=== PATIENT | male | born 1990 ===

== ENCOUNTER 2022-12-13 08:16 | Outpatient (REF) | payer OTHER, SELFPAY | END 2022-12-13 08:17 | disposition home or self-care (01) | LOC: HO.XRAY 08:16 | PROVIDERS: PCP Internal Medicine; Visit Provider Internal Medicine | DX: Z13.89 Encounter for screening for other disorder (principal) ==

== ENCOUNTER 2023-05-01 20:25 | Emergency (ER) | payer OTHER, SELFPAY ==
--- NOTE | ~2023-05-01 | CT_ITS ---
EXAMINATION: CT ABDOMEN AND PELVIS WITHOUT CONTRAST CLINICAL INFORMATION: Abdominal pain with nausea vomiting and question of renal calculi COMPARISON: None available. TECHNIQUE: Multidetector volumetric imaging was performed from the superior aspect of the liver through the pubic symphysis. Sagittal and coronal reformatted images were obtained on the technologist's workstation. This CT examination was performed using dose optimization techniques as appropriate, variously including the following: *Automated exposure control *Adjustment of mA and/or kV according to patient size (this includes techniques or standardized protocols for targeted exams where dose is matched to indication/reason for exam; i.e. extremities or head) *Use of iterative reconstruction technique DLP: 834 mGy-cm FINDINGS: LUNG BASES: The visualized lung bases are unremarkable. Right basilar atelectasis is present. LIVER, GALLBLADDER, AND BILIARY TREE: The liver is normal in size, shape, and attenuation. No focal hepatic lesion or biliary ductal dilatation is present. The gallbladder is unremarkable with no evidence of radiopaque gallstones, gallbladder wall thickening, or obvious pericholecystic inflammatory changes. PANCREAS: Unremarkable. SPLEEN: Unremarkable. ADRENAL GLANDS: Unremarkable. KIDNEYS AND URETERS: The kidneys are normal in size, shape, and attenuation. No hydronephrosis, hydroureter, or calculi seen. No perinephric stranding. BLADDER: Unremarkable. GASTROINTESTINAL TRACT: The small and large bowel are unremarkable aside from some scattered colonic diverticula without diverticulitis.. The appendix is unremarkable. ABDOMINAL WALL: No significant hernia is appreciated. LYMPH NODES: No retroperitoneal lymphadenopathy. VASCULAR: Unremarkable. PELVIC VISCERA: Symmetrically thickened bladder wall is present. Correlate with cystitis. Prostate and seminal vesicles appear normal. OSSEOUS STRUCTURES: Unremarkable. CT/CT abdomen pelvis wo IV con IMPRESSION: A cause for the patient's abdominal pain, nausea and vomiting has not been found. No renal calculi are seen. Bladder wall is symmetrically thickened which can be seen due to underfilling or possibly bladder outflow obstruction or cystitis. Colonic diverticula are present without diverticulitis. Fleischner guidelines were followed.
--- NOTE | ~2023-05-01 | XR_ITS ---
EXAMINATION: XR CHEST, 2 VIEWS CLINICAL INFORMATION: Pain COMPARISON: None. TECHNIQUE: PA and lateral views of the chest were obtained. FINDINGS: Lungs are clear. No consolidation, pneumothorax, or pleural effusion. Cardiac and mediastinal contours are normal. Pulmonary vasculature is unremarkable. Trachea is midline. Osseous structures are unremarkable. XR/XR chest 2V IMPRESSION: Normal chest radiographs.
--- NOTE | 2023-05-01 20:50 | ED_ITS ---
HPI - General Adult General Chief complaint: General Medical Stated complaint: nausea, fever?, hypertension cough Time Seen by Provider: 05/01/23 21:47 Source: patient Mode of arrival: ambulatory Limitations: no limitations History of Present Illness HPI narrative: Patient is a 32-year-old male presents to the emergency department for multiple complaints. States that he awoke this morning 0530 feeling unwell, feeling nauseous, subjective fever. This afternoon he developed vomiting, reports 8-9 times initially with food, then transition to clear emesis. Reports soft stools but no overt diarrhea. Mild abdominal discomfort or vomiting, otherwise endorsing abdominal pain. Denies fevers, chills, chest pain, loss, shortness of breath, difficulty breathing, constipation, melena, hematochezia, dysuria, hemat uria, urinary frequency, flank pain. States that he had a family gathering last night, did not eat any atypical foods, no others in the home are sick. Denies any known sick contacts Related Data Previous Rx's Medication Instructions Recorded ondansetron 4 mg disintegrating 4 mg PO Q8H PRN nausea and 05/02/23 tablet vomiting #10 tabs Allergies Allergy/AdvReac Type Severity Reaction Status Date / Time seafood Allergy Severe Anaphylaxis Uncoded 03/15/23 16:34 Review of Systems Review of Systems: Yes all other systems are reviewed and are negative PMFSH Past Medical History Attestation statement: The following information was validated with the patient. Source: old records reviewed Medical History Obesity (BMI 30-39.9) Smoker Surgical History S/P excision of lipoma Social History Social History Housing: Apartment Patient Tobacco Use Status: Current everyday Tobacco user Cigarettes Per Day: 4 Smoked in Last 30 Days: No e-Cigarette/Vaping Use: Never Used Substance Use Type: Marijuana Advance Directives: No Advance Directives Information Provided: Yes service: No Current occupational status: employed Cognitive needs: No Hearing needs: No Vision needs: No Physical Exam ED Vital Signs: Vital Signs - 24 hr 05/01/23 20:55 05/01/23 22:00 05/02/23 00:41 Temperature 98.8 F 97.8 F 97.9 F Pulse Rate 64 63 64 Respiratory Rate 16 16 14 Blood Pressure 154/102 H 156/90 H 125/64 Pulse Oximetry 98 97 95 Oxygen Delivery Method Room Air Room Air Room Air BMI result Body Mass Index 34.9 Appearance: Alert.?Oriented to person, place and time. No acute distress.?Normal affect. Eyes: Pupils equal, round and reactive to light.? ENT: Pharynx normal.?? Neck: Normal inspection.? Neck supple.?? CVS: Heart sounds normal. Normal heart rate and rhythm.? Pulses normal.?? Respiratory: No respiratory distress.? Lung sounds clear to auscultation bilaterally?? Abdomen: Soft and non-tender. Normoactive bowel sounds. No pulsatile mass.?? Skin: Skin warm and dry.? Normal skin color.? ?? Extremities: No lower extremity edema.? Neuro: Moves all extremities spontaneously. Sensation intact bilaterally. Ambulates with normal steady gait. Course Course Course Narrative: A 32-year-old male presents for evaluation of multiple complaints including nausea vomiting, cough, high blood pressure. Reports subjective fevers and chills but did not take his temperature. Plan for labs including chest x-ray, UA Reevaluation(s) Reevaluation #1: Chest x-ray without evidence of acute infection. COVID-19 and influenza testing are negative. CBC is overall unremarkable, no leukocytosis. CMP is overall unremarkable, lipase within normal limits, at this time low suspicion for acute hepatic or biliary abnormality, no acute abdomen, unlikely appendicit is/diverticulitis/obstruction/perforation. Urinalysis reveals microscopic hematuria, at this time patient reporting diffuse abdominal pain, very mild CVA tenderness on the right, will obtain CT imaging for evaluation of renal calculi Time: 23:00 Reevaluation #2: CT of the abdomen and pelvis is without acute abnormality. Rated p.o. trial. Symptoms at this time most likely consistent with gastroenteritis. Discussed hydration, bland diet, Zofran as needed. Outpatient follow-up with PCP. Discussed worrisome signs and symptoms that would warrant re-evaluation in the emergency department. All questions answered. Stable for discharge. Time: 00:40 Medications Administered Discontinued Medications Generic Name Dose Route Start Last Admin Trade Name Freq PRN Reason Stop Dose Admin Sodium Chloride 1,000 mls @ 999 mls/hr 05/01/23 22:15 05/02/23 00:55 Ns IV 05/01/23 23:15 Infused .Q1H1M RANCHO Infusion Ondansetron HCl 4 mg 05/01/23 22:05 05/01/23 22:23 Ondansetron Hcl 4 Mg/2 Ml Vial IVPUSH 05/01/23 22:06 4 mg ONCE ONE Administration Medical Decision Making Medical Decision Making [facility] Narrative: Patient is a 32-year-old male with no reported past medical history, presenting to the emergency department for evaluation of nausea/vomiting with mild abdominal discomfort. Initially mildly hypertensive, upon repeat blood pressure was 147/87, afebrile without tachycardia. Does not meet SIRS criteria. Not consistent with systemic toxicity at this time. Abdominal examination is overall benign, no rebound tenderness, no rigidity, no guarding, negative Morejon sign. Will obtain CBC to evaluate for leukocytosis/ anemia, CMP and lipase to evaluate for abnormal electrolytes /abnormal renal function/ abnormal hepatic/biliary function, and Urinalysis. Patient to receive 1L normal saline IV fluid, Zofran IV, and re-evaluate Differential Diagnosis Differential Diagnoses: The differential diagnosis associated with the presentation includes (Gastroenteritis, cholecystitis, cholelithiasis, pancreatitis, appendicitis, diverticulitis, urinary tract infection, viral infection) Admission/Observation Consideration of admission/observation: Escalation of care including admission/observation considered I considered admission, however patient is able to tolerate oral intake at this time, no acute abdomen. Stable for discharge home Lab Data [facility] Lab Attestation statement: I reviewed the patient's lab results. 05/01/23 20:57 05/01/23 20:57 Labs: Lab Results 05/01/23 05/01/23 05/01/23 Range/Units 20:57 20:57 20:57 WBC 9.3 (4.8-10.8) X10*3/uL RBC 5.46 (4.60-5.80) X10*6/uL Hgb 15.7 (14.0-18.0) g/dl Hct 46.3 (42.0-52.0) % MCV 84.8 (80.0-98.0) fL MCH 28.8 (27.0-33.0) pg MCHC 33.9 (31.0-36.0) g/dl RDW 11.3 (11.0-16.0) % Plt Count 228 (160-400) X10*3/uL MPV 10.1 (9.4-12.4) fL Immature Gran % (Auto) 0.3 (0.0-0.4) % Neut % (Auto) 71.6 (45-73) % Lymph % (Auto) 17.3 L (20-40) % [place] % (Auto) 6.7 (2-11) % Eos % (Auto) 3.7 (0-4) % Baso % (Auto) 0.4 (0-2) % Lymph # (Auto) 1.6 (1.2-4.9) X10*3/uL [place] # (Auto) 0.6 (0.1-1.2) X10*3/uL Eos # (Auto) 0.3 (0.0-0.4) X10*3/uL Baso # (Auto) 0.0 (0.0-0.2) X10*3/uL Abs Immat Gran (auto) 0.03 (0.00-0.03) X10*3/uL Absolute Neuts (auto) 6.7 (2.0-8.3) x10*3/uL Absolute Nucleated RBC 0.000 (0.0-0.012) X10*3/uL Nucleated RBC % (auto) 0.0 (0.0-0.2) /100WBC Sodium 138 (135-145) mmol/L Potassium 4.1 (3.3-5.1) mmol/L Chloride 105 (96-108) mmol/L Carbon Dioxide 22 (22-29) mmol/L Anion Gap 15 (12-20) BUN 14 (9-16) mg/dL Creatinine 0.99 (0.5-1.4) mg/dL Estim Creat Clear Calc 139.7 Estimated GFR > 60 Random Glucose 112 (60-115) mg/dL Calcium 9.7 (8.4-10.2) mg/dL Total Bilirubin 1.1 H (0.0-1.0) mg/dL AST 24 (5-37) U/L ALT 19 (0-40) U/L Alkaline Phosphatase 72 (39-117) U/L Total Protein 7.6 (6.5-8.0) g/dL Albumin 4.3 (3.5-5.0) g/dL Lipase 15 (8-78) U/L Urine Color Urine Appearance Urine pH (5.0-9.0) Ur Specific [place] (1.005-1.025) Urine Protein (Neg-Trace) mg/dL Urine Glucose (UA) (Negative) mg/dL Urine Ketones (Negative) mg/dL Urine Blood (Negative) Urine Nitrite (Negative) Ur Leukocyte Esterase (Negative) Urine RBC (0-2) /HPF Urine WBC (0-5) /HPF Ur Squamous Epith Cells (0-2) /HPF Urine Bacteria (None Seen) Hyaline Casts (0-2) /LPF Influenza Type A (PCR) NEGATIVE (Negative) Influenza Type B (PCR) NEGATIVE (Negative) RSV RNA Qual (PCR) NEGATIVE (Negative) SARS-CoV-2 RNA (RT-PCR) NEGATIVE (Negative) 05/01/23 Range/Units 22:20 WBC (4.8-10.8) X10*3/uL RBC (4.60-5.80) X10*6/uL Hgb (14.0-18.0) g/dl Hct (42.0-52.0) % MCV (80.0-98.0) fL MCH (27.0-33.0) pg MCHC (31.0-36.0) g/dl RDW (11.0-16.0) % Plt Count (160-400) X10*3/uL MPV (9.4-12.4) fL Immature Gran % (Auto) (0.0-0.4) % Neut % (Auto) (45-73) % Lymph % (Auto) (20-40) % [place] % (Auto) (2-11) % Eos % (Auto) (0-4) % Baso % (Auto) (0-2) % Lymph # (Auto) (1.2-4.9) X10*3/uL [place] # (Auto) (0.1-1.2) X10*3/uL Eos # (Auto) (0.0-0.4) X10*3/uL Baso # (Auto) (0.0-0.2) X10*3/uL Abs Immat Gran (auto) (0.00-0.03) X10*3/uL Absolute Neuts (auto) (2.0-8.3) x10*3/uL Absolute Nucleated RBC (0.0-0.012) X10*3/uL Nucleated RBC % (auto) (0.0-0.2) /100WBC Sodium (135-145) mmol/L Potassium (3.3-5.1) mmol/L Chloride (96-108) mmol/L Carbon Dioxide (22-29) mmol/L Anion Gap (12-20) BUN (9-16) mg/dL Creatinine (0.5-1.4) mg/dL Estim Creat Clear Calc Estimated GFR Random Glucose (60-115) mg/dL Calcium (8.4-10.2) mg/dL Total Bilirubin (0.0-1.0) mg/dL AST (5-37) U/L ALT (0-40) U/L Alkaline Phosphatase (39-117) U/L Total Protein (6.5-8.0) g/dL Albumin (3.5-5.0) g/dL Lipase (8-78) U/L Urine Color Yellow Urine Appearance Clear Urine pH 7.0 (5.0-9.0) Ur Specific [place] 1.020 (1.005-1.025) Urine Protein Negative (Neg-Trace) mg/dL Urine Glucose (UA) Negative (Negative) mg/dL Urine Ketones Negative (Negative) mg/dL Urine Blood Negative (Negative) Urine Nitrite Negative (Negative) Ur Leukocyte Esterase Negative (Negative) Urine RBC 3-5 H (0-2) /HPF Urine WBC 0-5 (0-5) /HPF Ur Squamous Epith Cells 0-2 (0-2) /HPF Urine Bacteria None Seen (None Seen) Hyaline Casts 0-2 (0-2) /LPF Influenza Type A (PCR) (Negative) Influenza Type B (PCR) (Negative) RSV RNA Qual (PCR) (Negative) SARS-CoV-2 RNA (RT-PCR) (Negative) Independent Interpretation I performed an independent interpretation of an: Plain X-Ray (I have personally interpreted chest x-ray and with radiologist impression) and CT Scan Radiology Impression Discussion of test interpretation with radiology: I have reviewed the radiologist's reading. Radiologist Impression: XR/XR chest 2V IMPRESSION: Normal chest radiographs.? CT/CT abdomen pelvis wo IV con IMPRESSION: A cause for the patient's abdominal pain, nausea and vomiting has not been found. No renal calculi are seen. Bladder wall is symmetrically thickened which can be seen due to underfilling or possibly bladder outflow obstruction or cystitis. Colonic diverticula are present without diverticulitis. Prescription Management I considered prescription management with: Other (Antiemetic) Discharge Plan Discharge Clinical Impression: Abdominal pain Patient Disposition: Home, Self-Care Instructions: Abdominal Pain (ED) Additional Instructions: Your blood test today were normal. There is no evidence of a urinary tract infection. The CT scan of your abdomen was also normal. At this time your symptoms are most likely due to a viral infection; gastroenteritis. Please be sure to stay well hydrated, drinking plenty of fluids, follow a bland diet; including crackers, bananas, rice, soup, toast, and boiled vegetables. This may progress to plain baked or boiled chicken or turkey. Avoid dairy products or foods high in fat or grease. Take Zofran as needed for nausea/vomiting. Follow-up with your primary care provider in 2-3 days for persistent symptoms. You can return back to emergency department any new or worsening symptoms or concerns. Prescriptions: New ondansetron 4 mg tablet,disintegrating 4 mg PO Q8H PRN (Reason: nausea and vomiting) Qty: 10 0RF Referrals: Francisco Javier Murguia MD [Primary Care Provider] - Stand Alone Forms: Work/School Release Interventions: ED Discharge Assessment Last Done: 05/02/23 01:47 Discharge Date/Time: 05/02/23 01:48
[2023-05-01 20:55] VITALS: BP 154/102; PULSE 64; RESP 16; TEMP 37.1; O2SAT 98; BMI 34.9
[2023-05-01 21:03] LABS: MANUAL DIFF FLAG NO
[2023-05-01 21:09] LABS: Basophils Percent Auto 0.4 % (0-2); Eosinophils Absolute Auto 0.3 X10*3/uL (0.0-0.4); Eosinophils Percent Auto 3.7 % (0-4); Hematocrit 46.3 % (42.0-52.0); Hemoglobin 15.7 g/dl (14.0-18.0); Imm Gran Abs Auto 0.03 X10*3/uL (0.00-0.03); Imm Gran Pct Auto 0.3 % (0.0-0.4); Lymphocytes Absolute Auto 1.6 X10*3/uL (1.2-4.9); Lymphocytes Percent Auto 17.3 % (20-40); Mean Corpuscular HGB Conc 33.9 g/dl (31.0-36.0); Mean Corpuscular Hemoglobin 28.8 pg (27.0-33.0); Mean Corpuscular Volume 84.8 fL (80.0-98.0); Mean Platelet Volume 10.1 fL (9.4-12.4); Monocytes Absolute Auto 0.6 X10*3/uL (0.1-1.2); Monocytes Percent Auto 6.7 % (2-11); Neutrophils Absolute Auto 6.7 x10*3/uL (2.0-8.3); Neutrophils Percent Auto 71.6 % (45-73); Platelet Count 228 X10*3/uL (160-400); Red Blood Count 5.46 X10*6/uL (4.60-5.80); Red Cell Distribution Width 11.3 % (11.0-16.0); White Blood Count 9.3 X10*3/uL (4.8-10.8)
[2023-05-01 21:42] LABS: Alanine Aminotransferase 19 U/L (0-40); Albumin Level 4.3 g/dL (3.5-5.0); Alkaline Phosphatase 72 U/L (39-117); Anion Gap 15 (12-20); Aspartate Amino Transferase 24 U/L (5-37); Bilirubin Total 1.1 mg/dL (0.0-1.0); Blood Urea Nitrogen 14 mg/dL (9-16); Calcium 9.7 mg/dL (8.4-10.2); Carbon Dioxide 22 mmol/L (22-29); Chloride 105 mmol/L (96-108); Creatinine Clr Calc Pharmacy 139.7; Estimated Glomerular Filt Rate > 60; Glucose Random 112 mg/dL (60-115); Lipase 15 U/L (8-78); Potassium 4.1 mmol/L (3.3-5.1); Sodium 138 mmol/L (135-145); Total Protein 7.6 g/dL (6.5-8.0)
[2023-05-01 21:50] LABS: Influenza A PCR NEGATIVE (Negative); Influenza B PCR NEGATIVE (Negative); Resp Syncy Virus RNA Qual PCR NEGATIVE (Negative); SARS COV2 PCR INHOUSE NEGATIVE (Negative)
[2023-05-01 22:00] VITALS: BP 156/90; PULSE 63; RESP 16; TEMP 36.6; O2SAT 97
[2023-05-01] MEDS: ondansetron HCL 4 MG/2 ML VIAL IVPUSH (22:23)
[2023-05-01] MEDS: 0.9 % Sodium Chloride 1,000 ML 999 ML IV (22:24)
[2023-05-01 22:26] LABS: Appearance Urine Clear; Color Urine Yellow; Glucose Urine UA Negative (Negative); Leukocyte Esterase Urine Negative (Negative); Nitrite Urine Negative (Negative); Urine Blood Negative (Negative); Urine Ketones Negative (Negative); Urine Protein Negative (Neg-Trace)
[2023-05-01 22:31] LABS: Bacteria Urine None Seen (None Seen); Hyaline Casts Urine 0-2 /LPF (0-2); Squamous Epithelial Cell Urine 0-2 /HPF (0-2); WBC Urine 0-5 /HPF (0-5)
[2023-05-02 00:41] VITALS: BP 125/64; PULSE 64; RESP 14; TEMP 36.6; O2SAT 95
== END 2023-05-02 01:48 | disposition home or self-care (01) ==
PROVIDERS: Physician Assistant; Emergency Provider Emergency Medicine; PCP Internal Medicine
DX: R10.9 Unspecified abdominal pain (principal); R11.0 Nausea; R05.9 Cough, unspecified; I10 Essential (primary) hypertension; R50.9 Fever, unspecified; R10.2 Pelvic and perineal pain; F17.200 Nicotine dependence, unspecified, uncomplicated; Z20.822 Contact with and (suspected) exposure to COVID-19; Z20.828 Contact with and (suspected) exposure to other viral communicable diseases; Z71.6 Tobacco abuse counseling; Z79.899 Other long term (current) drug therapy
CPT/HCPCS: 0241U; 71046; 74176; 80053; 81001; 83690; 85025; 96361; 96374; 99284; J2405

== ENCOUNTER 2023-05-26 09:00 | Outpatient (REF) | payer OTHER, SELFPAY ==
--- NOTE | ~2023-05-26 | FL_ITS ---
EXAMINATION: XR BARIUM ENEMA CLINICAL INFORMATION: Hemorrhage of the anus and rectum. COMPARISON: None available. TECHNIQUE: KUB prior to the barium enema reveals nonspecific bowel gas pattern. No organomegaly. No radiopaque calculi. No gross bony abnormality. FINDINGS: Following retrograde administration of thick barium and air there is normal retrograde flow of thick barium and air from the rectum, sigmoid colon, descending, transverse and ascending colon into the terminal ileum. No obstructive or constricting lesions seen. Especially no filling defects or mass seen in the rectum or the colon. Visualized ileocecal junction and the terminal ileum are normal. The appendix is normal caliber. On postevacuation images there is mild retention of barium throughout the colon with no intraluminal large filling defect or narrowing. FLUOROSCOPY TIME: 2 minutes DOSE AREA PRODUCT: 219 uGy-m2 (microgray-meter squared) FL/FL barium enema IMPRESSION: Unremarkable double contrast barium enema.
== END 2023-05-26 09:01 | disposition home or self-care (01) ==
LOC: HO.XRAY 09:00
PROVIDERS: PCP Internal Medicine; Visit Provider Internal Medicine
DX: K62.5 Hemorrhage of anus and rectum (principal)
CPT/HCPCS: 74270

== ENCOUNTER → 2023-05-26 09:02 | Outpatient (BNV) | payer OTHER, SELFPAY | PROVIDERS: PCP Internal Medicine; Visit Provider Radiology Diagnostic Radiology | DX: K56.600 Partial intestinal obstruction, unspecified as to cause (principal) | CPT/HCPCS: 74280 ==

== ENCOUNTER 2023-09-26 17:07 | Outpatient (AMB) | payer OTHER, SELFPAY ==
[2023-09-26 17:08] VITALS: BP 122/80; PULSE 73; O2SAT 98; BMI 33.9
--- NOTE | 2023-09-26 17:08 | A.OFFPC_ITS ---
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: No Accompanied by: Self / Same As Patient Allergies seafood Allergy (Severe, Uncoded 09/26/23 18:45) Anaphylaxis Medication List - Last Reconciled 09/26/23 by Francisco Javier Murguia MD bisacodyl (Dulcolax (bisacodyl)) 20 mg (4 x 5 mg) PO BEDTIME 1 day magnesium citrate 150 mL PO DAILY ondansetron 4 mg PO Q8H PRN polyethylene glycol 3350 (Miralax) 17 grams PO DAILY sennosides (senna) 8.6 mg PO BEDTIME PRN 30 days Tobacco use date assessed: 09/26/23 Dental Screening Dental Screen Date: 09/26/23 Did you have a dental visit in the last 12 months?: No Did you have a dental problem in the last 6 months where you did not have access to dental care?: No Was dental information given to patient?: Patient has dentist HPI pe HPI Details Patient comes in today for his annual physical examination States that he currently feels okay He denies any headaches or dizziness Denies any chest pains, no shortness of breath No nausea /vomiting, no abdominal pain No change in bowel habits noted Still has occasional blood in the stool but states that this is not occurring as often as it used to; states that the last time he noticed some blood in his stool was a couple of weeks ago He denies any acute urinary symptoms Would like to know how his barium enema done a few months ago came out [facility] Medical History Obesity (BMI 30-39.9) Smoker Surgical History S/P excision of lipoma Social History Housing: Apartment Patient Tobacco Use Status: Current everyday Tobacco user Cigarettes Per Day: 4 e-Cigarette/Vaping Use: Never Used Substance Use Type: Marijuana service: No Current occupational status: employed Cognitive needs: No Hearing needs: No Vision needs: No Questionnaire PHQ-9 Over the last 2 weeks, how often have you been bothered by any of the following problems? 1. Little interest or pleasure in doing things: not at all 2. Feeling down, depressed, or hopeless: not at all 3. Trouble falling or staying asleep, or sleeping too much: not at all 4. Feeling tired or having little energy: not at all 5. Poor appetite or overeating: not at all 6. Feeling bad about yourself - or that you are a failure or have let yourself or your family down: not at all 7. Trouble concentrating on things, such as reading the newspaper or watching television: not at all 8. Moving or speaking so slowly that other people could have noticed. Or the opposite - being so fidgety or restless that you have been moving around a lot more than usual: not at all 9. Thoughts that you would be better off or of hurting yourself in some way: not at all Total score: 0 Depression Screening Interpretation: Negative Depression Screening Done: Yes 92469 - PHQ-9 Billing: Yes Source: Developed by Drs. Phani Ferrara, Shivani Vieyra, Basil Rolon and colleagues, with an educational mishel from [employer]. Thrive Questionnaire Date Thrive assessed: 09/26/23 I am a: Patient What is your living situation today?: I have a steady place to live Within the past 12 months, did the food you bought not last and you didn't have the money to get more?: Never true Within the past 12 months, did you worry whether your food would run out before you got money to buy more?: Never true Do you have trouble paying for medicines?: No Do you have trouble getting transportation to medical appointments?: No Do you have trouble paying your heating and electricity bill?: No Do you have trouble taking care of your child, family member or friend?: No Do you have trouble with day-to-day activities such as bathing, preparing meals, shopping, managing finances, etc.?: No Are you currently unemployed and looking for a job?: No Are you interested in more education?: No Please select the resources that you would like help with: None Currently or been in a relationship where the following occur: no concerns reported AUDIT C Alcohol Use Questionnaire (AUDIT-C) 1. How often do you have a drink containing alcohol?: Never Total Score: 0 Score Reviewed/Action Taken: Yes MISSAEL-7 AMB Questionnaire MISSAEL-7 Date MISSAEL - 7 assessed: 09/26/23 Feeling nervous, anxious, or on edge: 0 = Not at all Not being able to stop or control worryin = Not at all Worrying too much about different things: 0 = Not at all Trouble relaxin = Not at all Being so restless that it is hard to sit still: 0 = Not at all Becoming easily annoyed or irritable: 0 = Not at all Feeling afraid as if something awful might happen: 0 = Not at all Total MISSAEL-7 score (0-4 normal; 5-9 mild; 10-14 moderate; 15-21 severe): 0 Source: Developed by Drs. Phani Ferrara, Shivani Vieyra, Basil Rolon and colleagues, with an educational mishel from [employer]. Review of Systems Const Denies chills, Denies fatigue, Denies fever(s), Denies headache(s), Denies malaise and Denies weakness Eyes Denies blurry vision, Denies change in vision, Denies irritation and Denies itchy eyes ENT Denies dysphagia, Denies dizziness, Denies otalgia, Denies headache(s), Denies nasal congestion, Denies neck pain, Denies odynophagia and Denies sore throat Card Denies chest pain, Denies rapid heart rate, Denies irregular heart rhythm, Denies palpitations and Denies dyspnea Resp Denies chest congestion, Denies cough, Denies dyspnea and Denies wheezing GI Denies abdominal pain, Denies bloating, Reports hematochezia (occasionally), Denies constipation, Denies dysphagia, Denies heartburn, Denies diarrhea, Denies nausea, Denies odynophagia and Denies vomiting Denies hematuria, Denies difficulty urinating, Denies dysuria, Denies urinary frequency and Denies urinary urgency Musc Denies back pain, Denies arthralgias, Denies joint swelling, Denies muscle weakness and Denies neck pain Skin/Breast Denies change in pigmentation, Denies lesions, Denies rash and Denies unusual bruising Neuro Denies dizziness, Denies headache(s), Denies paresthesias and Denies weakness Endo Denies fatigue and Denies palpitations Aller/Immun Denies itchy eyes and Denies wheezing Physical exam (Primary Care) Vital Signs: Last Vital Signs Pulse 73 09/26/23 17:08 BP 122/80 09/26/23 17:08 Pulse Ox 98 09/26/23 17:08 Oxygen Delivery Method Room Air 09/26/23 17:08 BMI result Body Mass Index 33.9 Tobacco/Smoking Status: Tobacco use Status Tobacco use date assessed 09/26/23 09/26/23 17:16 Patient Tobacco Use Status Current everyday Tobacco 09/26/23 17:16 e-Cigarette/Vaping Use Never Used 09/26/23 17:16 PHQ-9: PHQ-9 Score PHQ-9: Total score 0 09/26/23 22:20 Depression Screening Interpretation: Negative Thrive Assessment: Date of Thrive Assessment Date Thrive assessed 09/26/23 09/26/23 17:16 Currently or been in a relationship where the following occur: no concerns reported Const General: no acute distress, alert and awake Orientation/consciousness: patient oriented x3 HENMT Head: Yes normocephalic and Yes atraumatic Ears: external ears normal, TM's normal bilaterally and EAC's normal General nose exam: No nasal discharge present Face and sinus: Yes normal facial exam and Yes sinuses nontender Teeth and gingiva: dentition normal Throat: Yes posterior oropharynx normal and Yes tonsils normal (no TP congestion) Eyes Eyelids: Yes eyelids normal Conjunctivae: conjunctivae normal Pupils: Equal, round and reactive pupils present EOM: EOMs intact bilaterally Neck Neck: Yes no lymphadenopathy and Yes supple Thyroid: Thyroid normal Resp Auscultation: clear to auscultation bilaterally, no rales and no wheezes Cardio Rate: regular rate Rhythm: regular rhythm Heart sounds: no murmurs GI Palpation (GI): Soft to palpation, nontender and No hepatosplenomegaly present Auscultation: normal bowel sounds General: Yes no CVA tenderness Back/Spine/Pelvis Back: no CVA tenderness Thoracic/Lumbar Spine: thoracic and lumbar spine normal to inspection Skin Lesions: no lesions Rashes: no rashes Neuro General: patient oriented x3, moves all extremities, no focal motor deficits and CN's II-XI intact bilaterally Cranial nerves: Yes Equal, round and reactive pupils present Cognition (Neuro): normal cognition Gait exam (Neuro): Normal gait present Extrem General: Yes no clubbing, cyanosis or edema Results Reviewed Results Reviewed: Laboratory Tests 05/01/23 05/01/23 20:57 22:20 WBC 9.3 Hgb 15.7 Hct 46.3 Plt Count 228 Sodium 138 Potassium 4.1 Creatinine 0.99 Estimated GFR > 60 Random Glucose 112 Calcium 9.7 AST 24 ALT 19 Ur Specific [place] 1.020 Urine Protein Negative Urine Glucose (UA) Negative Urine Blood Negative Assessment and Plan Assessment & Plan (1) Annual physical exam: Code(s): Z00.00 - Encounter for general adult medical examination without abnormal findings Plan: Results of his labs done a few months ago reviewed and discussed with patient - is advised/reassured that his labs done back then were mostly within normal/acceptable range and that no other blood tests are needed or indicated at this time (2) Rectal bleeding: Code(s): K62.5 - Hemorrhage of anus and rectum Plan: He is also reassured that his barium enema done back in May 2023 came out normal Abdominal and pelvic CT done the month before (April 2023) also came out negative for any acute pathology As he continues to have on and off blood in his stool (discussed that internal hemorrhoids may be a possible source), will refer him to GI for further evaluation and management Have advised patient that he can take some OTC stool softener as needed to keep him from straining a lot during bowel movements, which can trigger rectal bleeding if he has hemorrhoids Rx for Senna 8.6 mg tablets sent to his pharmacy (3) Smoker: Code(s): F17.200 - Nicotine dependence, unspecified, uncomplicated Plan: Counseled again on smoking cessation (4) Obesity (BMI 30-39.9): Code(s): E66.9 - Obesity, unspecified Plan: Reinforced diet/exercise as tolerated/lose weight Plan Follow up in 6 months Orders: Referrals Gastroenterology Referral K62.5 - Hemorrhage of anus and rectum Medications: New sennosides (senna) 8.6 mg PO BEDTIME 30 days PRN 30 caps 2RF constipation Coding Level of Care Code Est Pt Prev Care 18-39y(09833) Diagnoses Annual physical exam Z00.00 Rectal bleeding K62.5 Smoker F17.200 Obesity (BMI 30-39.9) E66.9
== END 2023-09-26 17:35 | disposition home or self-care (01) ==
LOC: HO.HMGH 17:07
PROVIDERS: PCP Internal Medicine; Visit Provider Internal Medicine
DX: Z00.00 Encounter for general adult medical examination without abnormal findings (principal); K62.5 Hemorrhage of anus and rectum; E66.9 Obesity, unspecified; Z68.33 Body mass index [BMI] 33.0-33.9, adult; F17.210 Nicotine dependence, cigarettes, uncomplicated
CPT/HCPCS: 99395

== ENCOUNTER 2024-04-02 17:05 | Outpatient (AMB) | payer BC, MEDICAID, SELFPAY ==
[2024-04-02 17:12] VITALS: BP 140/86; PULSE 92; O2SAT 99; BMI 29.8
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
== END 2024-04-02 17:51 | disposition home or self-care (01) ==
PROVIDERS: PCP Internal Medicine; Visit Provider Internal Medicine
DX: I10 Essential (primary) hypertension (principal); S06.9X9S Unspecified intracranial injury with loss of consciousness of unspecified duration, sequela; F31.9 Bipolar disorder, unspecified; S72.002S Fracture of unspecified part of neck of left femur, sequela; G47.00 Insomnia, unspecified; F41.9 Anxiety disorder, unspecified
CPT/HCPCS: 99214

== ENCOUNTER 2024-05-22 16:13 | Outpatient (AMB) | payer OTHER, SELFPAY ==
[2024-05-22 16:15] VITALS: BP 130/90; PULSE 80; O2SAT 98; BMI 33.6
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
== END 2024-05-22 16:55 | disposition home or self-care (01) ==
LOC: HO.HMGH 16:13
PROVIDERS: PCP Internal Medicine; Visit Provider Internal Medicine
DX: M79.661 Pain in right lower leg (principal); F31.9 Bipolar disorder, unspecified; M79.89 Other specified soft tissue disorders; M79.662 Pain in left lower leg; I10 Essential (primary) hypertension; G47.00 Insomnia, unspecified; F41.9 Anxiety disorder, unspecified
CPT/HCPCS: 99213

== ENCOUNTER 2024-05-23 13:16 | Outpatient (REF) | payer OTHER, SELFPAY ==
--- NOTE | ~2024-05-23 | US_ITS ---
EXAMINATION: US VENOUS ULTRASOUND WITH DOPPLER LOWER EXTREMITY, BILATERAL CLINICAL INFORMATION: Bilateral leg edema and pain COMPARISON: None available. TECHNIQUE: Ultrasound of the deep veins is performed from the hip to the calf with compression sonography and color and pulse Doppler assessment. Spectral analysis with color-flow imaging is performed. FINDINGS: RIGHT: There is normal venous compression and respiratory variation and augmented flow. The visualized common femoral vein, superficial femoral vein, profunda femoral vein, popliteal vein, and the trifurcation region shows no evidence of deep venous thrombosis. There is no significant popliteal fossa cyst. LEFT: There is normal venous compression and respiratory variation and augmented flow. The visualized common femoral vein, superficial femoral vein, profunda femoral vein, popliteal vein, and the trifurcation region shows no evidence of deep venous thrombosis. There is no significant popliteal fossa cyst. US/US venous duplex LE BI IMPRESSION: No DVT demonstrated in either lower extremity.
== END 2024-05-23 13:17 | disposition home or self-care (01) ==
LOC: HO.HMGCX 13:16
PROVIDERS: PCP Internal Medicine; Visit Provider Internal Medicine
DX: M79.661 Pain in right lower leg (principal); M79.662 Pain in left lower leg; R60.0 Localized edema
CPT/HCPCS: 93970

== ENCOUNTER 2024-07-29 15:47 | Outpatient (AMB) | payer OTHER, SELFPAY ==
[2024-07-29 15:37] VITALS: BP 130/78; PULSE 98; O2SAT 98; BMI 37.8
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
== END 2024-07-29 16:23 | disposition home or self-care (01) ==
PROVIDERS: PCP Internal Medicine; Visit Provider Internal Medicine
DX: I10 Essential (primary) hypertension (principal); S06.9X9S Unspecified intracranial injury with loss of consciousness of unspecified duration, sequela; R06.02 Shortness of breath; R14.0 Abdominal distension (gaseous); R60.0 Localized edema; G47.00 Insomnia, unspecified; F41.9 Anxiety disorder, unspecified; F31.9 Bipolar disorder, unspecified; E66.9 Obesity, unspecified

== ENCOUNTER → 2024-07-29 15:47 | Outpatient (BNVA) | payer OTHER, SELFPAY | PROVIDERS: PCP Internal Medicine; Visit Provider Internal Medicine | DX: I10 Essential (primary) hypertension (principal); R06.02 Shortness of breath; R14.0 Abdominal distension (gaseous); R60.0 Localized edema; G47.00 Insomnia, unspecified; F41.9 Anxiety disorder, unspecified; F31.9 Bipolar disorder, unspecified; E66.9 Obesity, unspecified; Z79.899 Other long term (current) drug therapy; S06.9X9S Unspecified intracranial injury with loss of consciousness of unspecified duration, sequela | CPT/HCPCS: 96127; 99212 ==

== ENCOUNTER 2024-09-18 10:33 | Outpatient (AMB) | payer OTHER, SELFPAY ==
[2024-09-18 10:35] VITALS: BP 124/72; PULSE 82; O2SAT 99; BMI 38.4
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
== END 2024-09-18 11:14 | disposition home or self-care (01) ==
LOC: HO.HPSW 10:33
PROVIDERS: PCP Internal Medicine; Referring Provider Internal Medicine; Visit Provider Nurse Practitioner Family
DX: J45.909 Unspecified asthma, uncomplicated (principal); Z91.09 Other allergy status, other than to drugs and biological substances
CPT/HCPCS: 99204

== ENCOUNTER → 2024-09-18 10:33 | Outpatient (BNVA) | payer OTHER, SELFPAY | PROVIDERS: PCP Internal Medicine; Referring Provider Internal Medicine; Visit Provider Nurse Practitioner Family | DX: J45.909 Unspecified asthma, uncomplicated (principal); R06.00 Dyspnea, unspecified; Z57.2 Occupational exposure to dust; Z91.09 Other allergy status, other than to drugs and biological substances; Z87.891 Personal history of nicotine dependence | CPT/HCPCS: 99202 ==

== ENCOUNTER 2024-09-18 11:19 | Outpatient (REF) | payer OTHER, SELFPAY ==
[2024-09-18 14:19] LABS: Appearance Urine Clear; Color Urine Yellow; Glucose Urine UA Negative (Negative); Leukocyte Esterase Urine Negative (Negative); Nitrite Urine Negative (Negative); Specific Gravity - Urine 1.025 (1.005-1.025); Urine Blood Negative (Negative); Urine Ketones Negative (Negative); Urine Protein Negative (Neg-Trace)
[2024-09-18 15:04] LABS: Alanine Aminotransferase 28 U/L (0-40); Albumin Level 4.2 g/dL (3.5-5.0); Alkaline Phosphatase 79 U/L (39-117); Anion Gap 12 (12-20); Aspartate Amino Transferase 28 U/L (5-37); Bilirubin Total 0.8 mg/dL (0.0-1.0); Blood Urea Nitrogen 15 mg/dL (9-16); Calcium 8.9 mg/dL (8.4-10.2); Carbon Dioxide 25 mmol/L (22-29); Chloride 107 mmol/L (96-108); Estimated Glomerular Filt Rate > 60; Glucose Random 104 mg/dL (60-115); Potassium 3.9 mmol/L (3.3-5.1); Sodium 140 mmol/L (135-145); Total Protein 7.7 g/dL (6.5-8.0)
[2024-09-18 15:28] LABS: TSH reflex Free T4 1.08 uIU/mL (0.32-4.0); Vitamin D 25-OH Total 27.5 ng/mL (>30)
[2024-09-19 18:57] LABS: Immunoglobulin E 104 kU/L (<OR=114)
[2024-09-20 10:32] LABS: E001 - IgE Cat Dander 0.83 (H)
[2024-09-20 10:33] LABS: Class Cat Dander 2; Class Derm. pterony 3; Class Dermatophagoides farinae 3; Class Dog Dander 3; D001 IgE D pteronyssinus 10.10 (H); D002 - IgE D farinae 10.60 (H); E005 - IgE Dog Dander 7.48 (H)
[2024-09-20 10:34] LABS: Class Maple Box Elder 2; Class Mouse Urine Protein 0; E072-IgE Mouse Urine <0.10; I006-IgE Cockroach, German <0.10; Immunoglobulin E 110; T001 IgE Maple/Box Elder 1.19 (H)
[2024-09-20 10:35] LABS: Class Alternaria alternata 0; Class Aspergillus fumigatus 0; Class Cladosporium herbarum 0; Class Cockroach 0; Class Common Ragweed 0; Class Cottonwood 0; Class Mountain Cedar 0; Class Mugwort 0; Class Oak 0; Class Sycamore 0; Class Timothy Grass 0; Class Walnut Tree 0; Class White Ash 0; Class White Mulberry 0; G006 - IgE Timothy Grass <0.10; M002 - IgE Cladosporium herbar <0.10; M003 - IgE Aspergillus fumigat <0.10; M006 - IgE Alternaria alternat <0.10; T006 - IgE Cedar, Mountain <0.10; T007 - IgE Oak, White <0.10; T010 - IgE Walnut <0.10; T011 - IgE Maple Leaf Sycamore <0.10; T014 - IgE Cottonwood <0.10; T015 - IgE Ash, White <0.10; T070 - IgE White Mulberry <0.10; W001 - IgE Ragweed, Short <0.10; W006 - IgE Mugwort <0.10
[2024-09-20 10:36] LABS: Class Bermuda Grass 0; Class Birch 0; Class Elm 0; Class Penicillium crysogenum 0; Class Rough Pigweed 0; Class Sheep Sorrel 0; G002 IgE Bermuda Grass <0.10; M001 IgE Penicillium chrysogen <0.10; T003 IgE Common Silver Birch <0.10; T008 IgE Elm, American <0.10; W014 IgE Pigweed, Common <0.10; W018 IgE Sheep Sorrel <0.10
== END 2024-09-18 11:20 | disposition home or self-care (01) ==
LOC: HO.WFDLDS 11:19
PROVIDERS: Referring Provider Nurse Practitioner Family; Visit Provider Internal Medicine
DX: R14.0 Abdominal distension (gaseous) (principal); R63.5 Abnormal weight gain; E78.00 Pure hypercholesterolemia, unspecified; E55.9 Vitamin D deficiency, unspecified; R30.0 Dysuria; Z91.09 Other allergy status, other than to drugs and biological substances
CPT/HCPCS: 36415; 80053; 81003; 82306; 82785; 84443; 86003

== ENCOUNTER 2024-11-07 10:14 | Outpatient (REF) | payer OTHER, SELFPAY ==
[2024-11-07 10:20] VITALS: PULSE 75; O2SAT 97
--- NOTE | 2024-11-07 11:08 | PFT_ITS ---
Flows: FEV1: 68 % of predicted at 2.79 L FVC: 85 % of predicted at 4.19 L FEV1/FVC: 67 % Bronchodilator response: Present Volumes: Total lung capacity: 83 % of predicted at 5.42 L Residual volume: 98 % of predicted at 1.38 L Slow vital capacity: 78 % of predicted at 4.04 L Expiratory reserve volume: 49 % of predicted at 0.74 L Diffusion capacity: Normal Impression: Moderate obstructive ventilatory defect with positive bronchodilator response. Decreased expiratory reserve volume suggests extrathoracic restriction likely secondary to abdominal obesity. MTDD
== END 2024-11-07 10:15 | disposition home or self-care (01) ==
LOC: HO.RESP 10:14
PROVIDERS: PCP Internal Medicine; Visit Provider Nurse Practitioner Family
DX: J45.909 Unspecified asthma, uncomplicated (principal)
CPT/HCPCS: 94010; 94640; 94727; 94729

== ENCOUNTER → 2024-11-07 11:08 | Outpatient (BNV) | payer OTHER, SELFPAY | PROVIDERS: PCP Internal Medicine; Visit Provider Internal Medicine Pulmonary Disease | DX: J45.909 Unspecified asthma, uncomplicated (principal) | CPT/HCPCS: 94060; 94727; 94729 ==

== ENCOUNTER 2024-11-19 11:04 | Outpatient (AMB) | payer OTHER, SELFPAY ==
[2024-11-19 11:11] VITALS: BP 122/70; PULSE 83; O2SAT 98; BMI 38.5
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
--- OUTSIDE RECORDS SUMMARY | 2024-11-19 12:29 | XMS_ITS | Continuity of Care Document ---
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, subsequent encounter(Final) - Cognitive communication deficit(Final) - Discharge Disposition: A-D/C Home Attending Physician: Mao Castellanos MD Admitting Physician: Mao Castellanos MD Referring Physician: Mao Castellanos MD Encounter Type: Disch Recurring OP Allergies, Adverse Reactions, Alerts Substance Criticality Severity Reaction Reaction Severity Status Seafood Active Immunizations Given and Recorded Vaccine Date Status Refusal Reason tetanus/diphtheria/pertussis, acel(Tdap) 05/06/20 Given Medications acetaminophen 325 mg oral tablet 975 mg, By Mouth, Every 6 hours, PRN, Refills 0, Maintenance, Pain , Mild, 03/15/24 1:31:00 PM EDT, Partial fill upon patient request if the prescription is for a schedule II opioid drug. Start Date: 03/15/24 Status: Ordered Repeat number: 1 albuterol-ipratropium 3 mg-0.5 mg/3 ml inhalation solution BAND Nebulizer, Every 4 hours, PRN Wheezing/Shortness of Breath, 0 Refills, Maintenance, 03/15/24 1:31:00 PM EDT, Inhalation Solution, Partial fill upon patient request if the prescription is for a schedule II opioid drug. Start Date: 03/15/24 Status: Ordered Repeat number: 1 amLODIPine 10 mg oral tablet 10 mg, By Mouth, Daily, # 30 tablet, Refills 0, Tot. Refills 0, Maintenance, 03/18/24 2:58:00 PM EDT,Route to Pharmacy Electronically, [facility] 3, Partial fill upon patient request if the prescription is for a schedule II opioid drug., 175, cm, 03/17/24 12:29:00 EDT, Height, 86.7, kg, 03/17/24 12:29:00 EDT, Dry Weight Start Date: 03/18/24 Stop Date: 04/17/24 Status: Ordered Quantity: 30.0 Unit: tablet Repeat number: 1 benztropine 1 mg oral tablet 1 mg, By Mouth, 2 times a day, Refills 0, Maintenance, 03/15/24 1:31:00 PM EDT, Partial fill upon patient request if the prescription is for a schedule II opioid drug. Start Date: 03/15/24 Status: Ordered Repeat number: 1 benztropine 1 mg oral tablet 1 mg, By Mouth, 2 times a day, # 60 tablet, Refills 0, Tot. Refills 0, Maintenance, 03/18/24 2:58:00 PM EDT, Route to Pharmacy Electronically, [facility] 3, Partial fill upon patient request if the prescription is for a schedule II opioid drug., 175, cm, 03/17/24 12:29:00 EDT, Height, 86.7, kg, 03/17/24 12:29:00 EDT, Dry Weight Start Date: 03/18/24 Stop Date: 04/17/24 Status: Ordered Quantity: 60.0 Unit: tablet Repeat number: 1 bisacodyl 10 mg rectal suppository 1 supp = 10 mg, Rectally, Daily, PRN Constipation, 0 Refills, Maintenance, 03/15/24 1:31:00 PM EDT, Suppository, Partial fill upon patient request if the prescription is for a schedule II opioid drug. Start Date: 03/15/24 Status: Ordered Repeat number: 1 Calamine Topical 1 applicator, Topically, 2 times a day, PRN Itch, 0 Refills, Maintenance, Lotion Start Date: 03/15/24 Status: Ordered Repeat number: 1 Clonidine = 0.2 mg, Topically, Every 7 days, 0 Refills, Maintenance, 03/15/24 1:31:00 PM EDT, Patch, Partial fill upon patient request if the prescription is for a schedule II opioid drug. Start Date: 03/15/24 Status: Ordered Repeat number: 1 commode commode, See Instructions, # 1 each, Refills 0, Tot. Refills 0, Maintenance, Use as needed, 03/16/24 4:06:00 PM EDT, Supply Start Date: 03/16/24 Status: Ordered Quantity: 1.0 Unit: each Repeat number: 1 Depakote 250 mg oral enteric coated tablet 1 tablet = 250 mg, By Mouth, 3 times a day, # 270 tablet, 0 Refills, Maintenance, 03/18/24 3:00:00 PMEDT, EC Tablet, [facility], Partial fill upon patient request if the prescription is for a schedule II opioid drug., 175, cm, 03/17/24 12:29:00 EDT, Height, 86.7, kg, 03/17/24 12:29:00 EDT, Dry Weight Start Date: 03/18/24 Status: Ordered Quantity: 270.0 Unit: tablet Repeat number: 1 divalproex sodium 250 mg oral enteric coated tablet = 750 mg, By Mouth, 3 times a day, 0 Refills, Maintenance, 03/15/24 1:31:00 PM EDT, Tablet, Partial fill upon patient request if the prescription is for a schedule II opioid drug. Start Date: 03/15/24 Status: Ordered Repeat number: 1 divalproex sodium 250 mg oral enteric coated tablet = 750 mg, By Mouth, 3 times a day, # 270 tablet, 0 Refills, Maintenance, 03/18/24 3:02:00 PM EDT, Tablet, [facility], Partial fill upon patient request if the prescription is for a schedule II opioid drug., 175, cm, 03/17/24 12:29:00 EDT, Height, 86.7, kg, 03/17/24 12:29:00 EDT, Dry Weight Start Date: 03/18/24 Stop Date: 04/17/24 Status: Ordered Quantity: 270.0 Unit: tablet Repeat number: 1 EpiPen 2-Ariel 0.3 mg injectable kit 0.5 mL, Intramuscular, Once, # 1 kit, 0 Refills, Soft Stop, 03/18/24 3:01:00 PM EDT, [facility] 3, Partial fill upon patient request if the prescription is for a schedule II opioid drug., 175, cm, 03/17/24 12:29:00 EDT, Height, 86.7, kg, 03/17/24 12:29:00 EDT, Dry Weight Start Date: 03/18/24 Status: Ordered Quantity: 1.0 Unit: kit Repeat number: 1 Multivit Therapeutic/Minerals Tablet 1 tablet, By Mouth, Daily, 0 Refills, Maintenance, 03/15/24 1:31:00 PM EDT, Tablet, Partial fill uponpatient request if the prescription is for a schedule II opioid drug. Start Date: 03/15/24 Status: Ordered Repeat number: 1 olanzapine 2.5 mg oral tablet 5 mg, 2, tablet, By Mouth, Daily at bedtime, # 60 tablet, Refills 0, Tot. Refills 0, Maintenance, 03/18/24 3:00:00 PM EDT, Route to Pharmacy Electronically, [facility] 3, Partial fill upon patient request if the prescription is for a schedule II opioid drug., 175, cm, 03/17/24 12:29:00 EDT, Height, 86.7, kg, 03/17/24 12:29:00 EDT, Dry Weight Start Date: 03/18/24 Stop Date: 04/17/24 Status: Ordered Quantity: 60.0 Unit: tablet Repeat number: 1 olanzapine 5 mg oral tablet 5 mg, By Mouth, Every 24 hours, Refills 0, Maintenance, 03/15/24 1:31:00 PM EDT, Partial fill upon patient request if the prescription is for a schedule II opioid drug. Start Date: 03/15/24 Status: Ordered Repeat number: 1 ondansetron 4 mg oral tablet, disintegrating = 4 mg, By Mouth, Every 6 hours, PRN Nausea & Vomiting, 0 Refills, Maintenance, 03/15/24 1:31:00 PM EDT, Tablet, Partial fill upon patient request if the prescription is for a schedule II opioid drug. Start Date: 03/15/24 Status: Ordered Repeat number: 1 Polyethylene Glycol Powder 1 pack/packet = 17 Gm, By Mouth, Daily, 0 Refills, Maintenance, 03/15/24 1:31:00 PM EDT, Powder, Partial fill upon patient request if the prescription is for a schedule II opioid drug. Start Date: 03/15/24 Status: Ordered Repeat number: 1 propranolol 20 mg oral tablet 60 mg, By Mouth, 3 times a day, Refills 0, Maintenance, 03/15/24 1:31:00 PM EDT, Partial fill upon patient request if the prescription is for a schedule II opioid drug. Start Date: 03/15/24 Status: Ordered Repeat number: 1 propranolol 20 mg oral tablet 60 mg, By Mouth, 3 times a day, # 270 tablet, Refills 0, Tot. Refills 0, Maintenance, 03/18/24 2:57:00 PM EDT, Route to Pharmacy Electronically, [facility], Partial fill upon patient request if the prescription is for a schedule II opioid drug., 175, cm, 03/17/24 12:29:00 EDT, Height, 86.7, kg, 03/17/24 12:29:00 EDT, Dry Weight Start Date: 03/18/24 Stop Date: 04/17/24 Status: Ordered Quantity: 270.0 Unit: tablet Repeat number: 1 shower chair shower chair, See Instructions, # 1 each, Refills 0, Tot. Refills 0, Maintenance, use as needed nash, 03/16/24 4:05:00 PM EDT, Supply Start Date: 03/16/24 Status: Ordered Quantity: 1.0 Unit: each Repeat number: 1 simethicone 80 mg oral tablet, chewable 80 mg, Chew, 3 times a day, PRN, Refills 0, Maintenance, Gas, 03/15/24 1:32:00 PM EDT, Partial fill upon patient request if the prescription is for a schedule II opioid drug. Start Date: 03/15/24 Status: Ordered Repeat number: 1 traZODone 100 mg oral tablet 200 mg, By Mouth, Daily at bedtime, # 60 tablet, Refills 0, Tot. Refills 0, Maintenance, 03/18/24 2:56:00 PM EDT, Route to Pharmacy Electronically, [facility], Partial fill upon patient request if the prescription is for a schedule II opioid drug., 175, cm, 03/17/24 12:29:00 EDT, Height, 86.7, kg, 03/17/24 12:29:00 EDT, Dry Weight Start Date: 03/18/24 Stop Date: 04/17/24 Status: Ordered Quantity: 60.0 Unit: tablet Repeat number: 1 traZODone 50 mg oral tablet 200 mg, By Mouth, Daily at bedtime, Refills 0, Maintenance, 03/15/24 1:31:00 PM EDT, Partial fill upon patient request if the prescription is for a schedule II opioid drug. Start Date: 03/15/24 Status: Ordered Repeat number: 1 walker walker, See Instructions, # 1 each, Refills 0, Tot. Refills 0, Maintenance, Height: 5'7 Weight: 87kg Dx: acetabular fracture and tibial plateau fracture, 03/16/24 4:04:00 PM EDT, Supply Start Date: 03/16/24 Status: Ordered Quantity: 1.0 Unit: each Repeat number: 1 Wheelchair Wheelchair, See Instructions, # 1 each, Refills 0, Tot. Refills 0, Maintenance, Height: 5'7 Weight: 87kg Dx: acetabular fracture and tibial plateau fracture, 03/16/24 4:02:00 PM EDT, Supply Start Date: 03/16/24 Status: Ordered Quantity: 1.0 Unit: each Repeat number: 1 ZyPREXA 2.5 mg oral tablet 2.5 mg, By Mouth, Daily in AM, Refills 0, Maintenance, 03/15/24 1:31:00 PM EDT, Partial fill upon patient request if the prescription is for a schedule II opioid drug. Start Date: 03/15/24 Status: Ordered Repeat number: 1 Problem List Condition Confirmation Course Effective Dates Status Health St atus Informant Bipolar affective disorder, currently depressed, mild Confirmed Active COVID-19 1 Confirmed 12/15/21 Active Mild major depression Confirmed Active Obese class II Confirmed Active 1Problem added by Discern Expert Patient Care team information Care Team Personnel Name: Jessica WHITE, Venkatesh Position: S RN Member Role: Primary Care Nurse Name: Francisco Javier Murguia MD Position: Reference Physician Member Role: PCP Address: [address] [place] [address] [place] [address]- Telecom: Name: Kathleen Mittal RN Position: [facility] RN Member Role: Primary Care Nurse Name: Beth Devries RN Position: [facility] RN Member Role: Primary Care Nurse Name: Corina Johnson RN Position: [facility] RN Member Role: Primary Care Nurse Name: Noemi Hill RN Position: [facility] RN Member Role: Primary Care Nurse Name: Ayleen Dubois RN Position: [facility] RN Member Role: Primary Care Nurse Name: Gladys Palmer RN Position: [facility] RN Member Role: Primary Care Nurse Name: Hilario Chaney RN Position: [facility] RN Member Role: Primary Care Nurse Name: Benny Muhammad LPN Position: [facility] RN Member Role: Primary Care Nurse Name: Leydi Hunter RN Position: [facility] RN Member Role: Primary Care Nurse Name: Aleah Ballard RN Position: [facility] RN Member Role: Primary Care Nurse Name: Adelaida Porter RN Position: [facility] RN Member Role: Primary Care Nurse Name: Licha Capps RN Position: [facility] RN Member Role: Primary Care Nurse Name: Allyson Martin RN Position: [facility] RN Member Role: Primary Care Nurse Name: Clarisa Pavon RN Position: [facility] RN Supv Member Role: Primary Care Nurse Name: Dayo Cruz RN Position: [facility] RN Member Role: Primary Care Nurse Name: Obdulia Murray RN Position: [facility] RN Member Role: Primary Care Nurse Name: Debra Guerrero RN Position: [facility] RN Member Role: Primary Care Nurse Name: Shabbir Smith RN Position: [facility] RN Member Role: Primary Care Nurse Name: Benjamin Rosales RN Position: [facility] RN Supv Member Role: Primary Care Nurse Name: Renee Hernandez RN Position: [facility] RN Member Role: Primary Care Nurse Name: Vielka Burns RN Position: [facility] RN Member Role: Primary Care Nurse Name: Vicki Corona RN Position: [facility] RN Member Role: Primary Care Nurse Name: Alejo Stinson RN Position: [facility] RN Member Role: Primary Care Nurse Name: Mariya Kumar RN Position: S RN Member Role: Primary Care Nurse Name: Celi Hernandez RN Position: S RN Member Role: Primary Care Nurse Name: Janett Miller RN Position: S RN Member Role: Primary Care Nurse Name: Wilma Spivey RN Position: S RN Member Role: Primary Care Nurse Name: Chelsi Elise NP Position: [facility] Outreach Member Role: Lifetime Consulting Physician Address: [address] [place], [place] [address] Telecom: Name: Oneyda Chapman RN Position: [facility] RN Member Role: Primary Care Nurse Name: Iwona Mills RN Position: [facility] RN Member Role: Primary Care Nurse Name: Cinthya Salgado RN Position: [facility] RN Member Role: Primary Care Nurse Name: Jessica Guerrier RN Position: [facility] RN Member Role: Primary Care Nurse Name: Sandro Herrera RN Position: [facility] RN Member Role: Primary Care Nurse Name: Bren Eduardo RN Position: [facility] RN Member Role: Primary Care Nurse Care Team Related Persons Name: XOCHILT LIM Name: XOCHILT ROSE Name: XOCHILT GAFFNEY Name: SERENITY CAMPBELL Name: ARMOND MORGAN Name: HANNAH THURMAN Insurance Providers Guarantor name: NA Health Plan Information #: 1 Payer: [employer] Member Number: [id number] Policy Number: NA Group Number: [id number] Health Plan Information #: 2 Payer: [employer] Member Number: [id number] Policy Number: NA Group Number: NA
--- OUTSIDE RECORDS SUMMARY | 2024-11-19 12:29 | XMS_ITS | Continuity of Care Document ---
Author Organization [facility] ter Address [address] [place] [address]- Care Team Providers Care Stave Block Splitter Name Role Phone Francisco Javier Murguia MD [id number] - 11/14/[address] [address]- Encounter Diagnosis Asthma exacerbation(Final) - 11/14/24 Discharge Disposition: A-D/C Home Attending Physician: Yuliana Kennedy DO Admitting Physician: Yuliana Kennedy DO Referring Physician: Not on Staff, Referring MD Encounter Type: Disch ES Allergies, Adverse Reactions, Alerts Substance Criticality Severity [...] 03/18/24 2:58:00 PM EDT,Route to Pharmacy Electronically, [facility] 3, Partial fill upon patient request if [...] 2:58:00 PM EDT, Route to Pharmacy Electronically, [facility] 3, Partial fill upon patient request if [...] Refills, Maintenance, 03/18/24 3:00:00 PMEDT, EC Tablet, [facility], Partial fill upon patient [...] Refills, Maintenance, 03/18/24 3:02:00 PM EDT, Tablet, [facility], Partial fill upon patient [...] Refills, Soft Stop, 03/18/24 3:01:00 PM EDT, [facility] 3, Partial fill upon patient request if [...] 3:00:00 PM EDT, Route to Pharmacy Electronically, [facility] 3, Partial fill upon patient request if [...] Date: 03/15/24 Status: Ordered Repeat number: 1 predniSONE 50 mg oral tablet 1 tablet = 50 mg, By Mouth, Daily, for 4 days, # 4 tablet, 0 Refills, Acute 11/18/24 6:43:00 AM EST, 11/14/24 6:43:00 AM EST, Tablet, [id number], Partial fill upon patient request if the prescription is for a schedule II opioid drug., 170, cm, 11/13/24 23:38:00 EST, Height, 127.3, kg, 11/13/24 2 3:38:00 EST, Dry Weight Start Date: 11/14/24 Stop Date: 11/18/24 Status: Ordered Quantity: 4.0 Unit: tablet Repeat number: 1 propranolol 20 mg oral [...] 2:57:00 PM EDT, Route to Pharmacy Electronically, [facility], Partial fill upon patient request if [...] 2:56:00 PM EDT, Route to Pharmacy Electronically, [facility], Partial fill upon patient request if [...] 12/15/21 Active Mild major depression Confirmed Active Severe obesity Confirmed Active 1Problem added by Discern Expert Results Radiology Reports * Exam Date Time Procedure Performing Provider Status 11/14/24 5:57 AM Chest 2 Views Frontal and Lat Benja Kaufman; Lucia (Verified) Notes: (Chest 2 Views Frontal and Lat) Reason For Exam: Shortness of Breath, Fever;Other: RESULT: Chest 2 Views Frontal and Lat Chest 2 Views Frontal and Lat COMPARISON: 01/27/2024 INDICATION / CLINICAL QUESTION: Shortness of breath FINDINGS: LINES AND TUBES: None. LUNGS AND PLEURA: Clear lungs. Normal pulmonary vascularity. No pleural effusion. No pneumothorax. HEART, MEDIASTINUM AND DAYAN: Normal. BONES AND SOFT TISSUES: Healed right rib and distal clavicle fractures. IMPRESSION: No acute abnormality. WSN: [id number] Ordering Physician: Garrick Vera Dictated By: Chico Donis MD Dictated Date/Time: 11/14/24 7:25 am Reviewed By: Chico Donis MD Signed By: Chico Donis MD Signed Date/Time: 11/14/24 7:25 am Transcribed By: KE Transcribed Date/Time: 11/14/24 7:24 am Vital Signs Most recent to oldest [Reference Range]: 1 2 3 Height 170 cm (11/13/24 11:38 PM) 170 cm (11/13/24 11:06 PM) Weight 127.3 kg (11/13/24 11:38 PM) 127.3 kg (11/13/24 11:06 PM) Oxygen Saturation [94-100 %] 96 % (11/14/24 6:40 AM) 97 % (11/14/24 4:20 AM) 98 % (11/14/24 12:50 AM) Pulse Rate [55-90 bpm] 80 bpm (11/14/24 6:40 AM) 79 bpm (11/14/24 4:20 AM) 69 bpm (11/14/24 12:50 AM) Body Mass Index [18.5-24.99 kg/m2] 44.05 kg/m2 *>HHI* (11/13/24 11:06 PM) Blood Pressure [90-138/55-84 mm Hg] 132/70mm Hg (11/14/24 6:40 AM) 135/97mm Hg (11/14/24 4:20 AM) 144/76mm Hg *H* (11/14/24 12:50 AM) Respiratory Rate [16-30 br/min] 16 br/min (11/14/24 6:40 AM) 28 br/min (11/14/24 4:20 AM) 19 br/min (11/14/24 12:50 AM) Temperature [96.8-100.4 DegF] 97.7 DegF (11/14/24 4:20 AM) 98.1 DegF (11/14/24 12:50 AM) 97.4 DegF (11/13/24 11:06 PM) Mode of Delivery (Oxygen) Room air (11/14/24 6:40 AM) Room air (11/14/24 4:20 AM) Nasal cannula (11/14/24 12:50 AM) Blood pressure sites Arm, left (11/14/24 6:40 AM) Arm, left (11/14/24 4:20 AM) Arm, left (11/14/24 12:50 AM) Temperature Route Oral (11/14/24 4:20 AM) Oral (11/14/24 12:50 AM) Oral (11/13/24 11:06 PM) Dry Weight 127.3 kg (11/13/24 11:38 PM) 127.3 kg (11/13/24 11:06 PM) Weight Obtained Via Standing scale (11/13/24 11:06 PM) Dry Weight Obtained Via Standing scale (11/13/24 11:06 PM) Patient Care team information Care Team Personnel Name: Venkatesh Loepz RN Position: [facility] RN Member Role: Primary Care Nurse Name: Francisco Javier Murguia MD Position: Reference Physician Member Role: PCP Address: [address] [place], [place] [id number] Telecom: Name: Kathleen Mittal RN Position: [facility] RN Member Role: Primary Care Nurse Name: Beth Devries RN Position: [facility] RN Member Role: Primary Care Nurse Name: Corina Johnson RN Position: [facility] RN Member Role: Primary Care Nurse Name: Noemi Hill RN Position: [facility] RN Member Role: Primary Care Nurse Name: Ayleen Dubois RN Position: [facility] RN Member Role: Primary Care Nurse Name: Gladys Palmer RN Position: [facility] RN Member Role: Primary Care Nurse Name: Hilario Chaney RN Position: [facility] RN Member Role: Primary Care Nurse Name: Benny Muhammad LPN Position: [facility] RN Member Role: Primary Care Nurse Name: Leydi Hunter RN Position: [facility] RN Member Role: Primary Care Nurse Name: Aleah Ballard RN Position: [facility] RN Member Role: Primary Care Nurse Name: Adelaida Porter RN Position: [facility] RN Member Role: Primary Care Nurse Name: Licha Capps RN Position: [facility] RN Member Role: Primary Care Nurse Name: Allyson Martin RN Position: [facility] RN Member Role: Primary Care Nurse Name: Clarisa Pavon RN Position: [facility] RN Supv Member Role: Primary Care Nurse Name: Dayo Cruz RN Position: [facility] RN Member Role: Primary Care Nurse Name: Obdulia Murray RN Position: [facility] RN Member Role: Primary Care Nurse Name: Debra Guerrero RN Position: [facility] RN Member Role: Primary Care Nurse Name: Shabbir Smith RN Position: [facility] RN Member Role: Primary Care Nurse Name: Benjamin Rosales RN Position: [facility] RN Supv Member Role: Primary Care Nurse Name: Renee Hernandez RN Position: [facility] RN Member Role: Primary Care Nurse Name: Vielka Burns RN Position: [facility] RN Member Role: Primary Care Nurse Name: Vicki Corona RN Position: [facility] RN Member Role: Primary Care Nurse Name: Alejo Stinson RN Position: [facility] RN Member Role: Primary Care Nurse Name: Mariya Kumar RN Position: [facility] RN Member Role: Primary Care Nurse Name: Celi Hernandez RN Position: [facility] RN Member Role: Primary Care Nurse Name: Janett Miller RN Position: [facility] RN Member Role: Primary Care Nurse Name: Wilma Spivey RN Position: [facility] RN Member Role: Primary Care Nurse Name: Chelsi Elise NP Position: [facility] Outreach Member Role: Lifetime Consulting Physician Address: [address] [place], [place] [address] Telecom: Name: Oneyda Chapman RN Position: [facility] RN Member Role: Primary Care Nurse Name: [place] RN Position: [facility] RN Member Role: Primary Care Nurse Name: Cinthya Salgado RN Position: [facility] RN Member Role: Primary Care Nurse Name: Jessica Guerrier RN Position: [facility] RN Member Role: Primary Care Nurse Name: Sandro Herrera RN Position: [facility] RN Member Role: Primary Care Nurse Name: Bren Eduardo RN Position: [facility] RN Member Role: Primary Care Nurse Care Team Related Persons Name: XOCHILT LIM Name: XOCHILT ROSE Name: XOCHILT GAFFNEY Name: SERENITY CAMPBELL Name: ARMOND MORGAN Name: HANNAH THURMAN Insurance Providers Guarantor name: RUDY Health Plan Information #: 3 Payer: [employer] Member Number: [id number] Policy Number: NA Group Number: [id number] Health Plan Information #: 1 Payer: [employer] Member Number: [id number] Policy Number: NA Group Number: [id number] Health Plan Information #: 2 Payer: [employer] Member Number: [id number] Policy Number: NA Group Number: NA
== END 2024-11-19 11:45 | disposition home or self-care (01) ==
PROVIDERS: PCP Internal Medicine; Visit Provider Nurse Practitioner Family
DX: J45.909 Unspecified asthma, uncomplicated (principal); Z91.09 Other allergy status, other than to drugs and biological substances; R06.00 Dyspnea, unspecified; R40.0 Somnolence
CPT/HCPCS: 99214

== ENCOUNTER → 2024-11-19 11:04 | Outpatient (BNVA) | payer OTHER, SELFPAY | PROVIDERS: PCP Internal Medicine; Visit Provider Nurse Practitioner Family | DX: J45.909 Unspecified asthma, uncomplicated (principal); R06.00 Dyspnea, unspecified; R40.0 Somnolence; I10 Essential (primary) hypertension; Z87.891 Personal history of nicotine dependence; Z91.09 Other allergy status, other than to drugs and biological substances | CPT/HCPCS: 99212 ==

== ENCOUNTER 2024-12-02 14:45 | Outpatient (AMB) | payer OTHER, SELFPAY ==
[2024-12-02 14:47] VITALS: BP 124/78; PULSE 77; TEMP 36.3; O2SAT 98; BMI 38.1
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
== END 2024-12-02 15:53 | disposition home or self-care (01) ==
PROVIDERS: PCP Internal Medicine; Visit Provider Internal Medicine
DX: R10.13 Epigastric pain (principal); S06.9X9S Unspecified intracranial injury with loss of consciousness of unspecified duration, sequela; F31.9 Bipolar disorder, unspecified; I10 Essential (primary) hypertension; R60.0 Localized edema; G47.00 Insomnia, unspecified; F41.9 Anxiety disorder, unspecified; E66.9 Obesity, unspecified

== ENCOUNTER → 2024-12-02 14:45 | Outpatient (BNVA) | payer OTHER, SELFPAY | PROVIDERS: PCP Internal Medicine; Visit Provider Internal Medicine | DX: R10.13 Epigastric pain (principal); I10 Essential (primary) hypertension; S06.9X9S Unspecified intracranial injury with loss of consciousness of unspecified duration, sequela; R60.0 Localized edema; G47.00 Insomnia, unspecified; F41.9 Anxiety disorder, unspecified; F31.9 Bipolar disorder, unspecified; E66.9 Obesity, unspecified | CPT/HCPCS: 96127; 99212 ==

== ENCOUNTER 2025-02-14 10:10 | Outpatient (REF) | payer BC, SELFPAY ==
--- NOTE | ~2025-02-14 | US_ITS ---
EXAMINATION: US ABDOMEN HISTORY: R10.9 - Unspecified abdominal pain TECHNIQUE: Real-time grayscale ultrasound imaging of the abdomen was performed and images were reviewed. COMPARISON: Correlation is made with an unenhanced CT of the abdomen dated 05/01/2023. FINDINGS: Liver: The right lobe of the liver measures 17.0 cm in size. The left lobe of the liver measures 12.4 cm in size. The liver demonstrates increased echotexture, consistent with steatosis. No focal mass or intrahepatic biliary ductal dilatation is identified. There is normal hepatopedal flow in the portal vein. Gallbladder and biliary tree: The gallbladder is unremarkable, without evidence of calculi, wall thickening, or pericholecystic fluid. There is no sonographic Morejon sign. The common bile duct is normal in caliber measuring 3 mm. Kidneys: Right kidney measures 11.3 cm in length. The left kidney measures 11.0 cm in length. The kidneys are unremarkable, without evidence of masses, hydronephrosis, or calculi. Pancreas: The pancreatic head, neck, and body are unremarkable. The pancreatic tail is obscured by bowel gas. Spleen: The spleen is normal in size and contour, measuring 10.7 cm in length. Abdominal aorta and inferior vena cava: The visualized portions of the abdominal aorta and inferior vena cava are normal in caliber. There is no free fluid in the abdomen. US/US abdomen complete IMPRESSION: Hepatomegaly and hepatic steatosis. Electronically signed by: Phani Santo MD 02/14/2025 11:10 AM EDT
--- OUTSIDE RECORDS SUMMARY | 2025-02-14 11:33 | XMS_ITS | Clinical Summary ---
Author Organization [facility] Address [address] [place] [address] Phone Care Team Providers Care Center Receptionist Name Role Phone Phani Del Valle DO Primary Care Provider + Allergies Active Allergy Reactions Criticality Noted Date Comments Cat Dander 12/18/2024 Dog Dander 12/18/2024 Chlorpheniramine-Phenylpropan 2024 Shellfish Containing Products 2024 Medications benztropine (COGENTIN) 1 mg tablet Take 1 tablet (1 mg total) by mouth 2 (two) times a day. Active cetirizine (ZyrTEC) 10 mg tablet Take 1 tablet (10 mg total) by mouth 1 (one) time each day if needed for allergies. Active divalproex (DEPAKOTE) [address] tablet Take 3 tablets (750 mg total) by mouth 3 (three) times a day. Active Breo Ellipta 200-25 mcg/dose inhaler Inhale 1 puff by mouth 1 (one) time each day. Active OLANZapine (ZyPREXA) 2.5 mg tablet Take 1 tablet (2.5 mg total) by mouth at bedtime. at bedtime. Active Ventolin HFA 90 mcg/actuation inhaler Inhale 2 puffs by mouth every 6 (six) hours if needed for shortness of breath or wheezing. 6.7 g Active Active Problems Problem Noted Date Diagnosed Date Influenza A 12/19/2024 TBI (traumatic brain injury) 12/19/2024 Moderate asthma without complication 12/19/2024 Obesity (BMI 35.0-39.9 without comorbidity) 04/2025 Severe obesity 12/19/2024 Resolved Problems Problem Noted Date Diagnosed Date Resolved Date Acute hypoxemic respiratory failure 12/19/2024 12/21/2024 Encounters Date Type Department Care Team Description 12/18/2024 8:38 PM EST - 12/21/2024 3:10 PM EST Hospital Encounter [facility] [address] [place] [id number] Shaun Mcintosh MD Japaridze, Anna, MD Flores, Carlos M, MD Kokosadze, MD Cristino Shortness of breath (Primary Dx); Influenza A; Moderate asthma with exacerbation, unspecified whether persistent; Acute hypoxic respiratory failure (CMS/HCC) Discharge Disposition: Home or Self Care from Last 3 Months Surgical History Surgery Date Site/Laterality Comments OTHER SURGICAL HISTORY PROCEDURE: DENIES PREVIOUS SURGERY Medical History Medical History Date Comments Depression DX:Depression Social History Tobacco Use Types Packs/Day Years Used Date Smoking Tobacco: Every Day Smokeless Tobacco: Never Alcohol Use Standard Drinks/Week Comments Yes 0 (1 standard drink = 0.6 oz pur e alcohol) Sex and Gender Information Value Date Recorded Sex Assigned at Male 12/18/2024 9:15 PM EST Legal Sex Male 6:52 PM EST Gender Identity Male 12/18/2024 9:15 PM EST Sexual Orientation Straight 12/18/2024 9: 15 PM EST Obstetrics History Last Filed Vital Signs Vital Sign Reading Time Taken Comments Blood Pressure 157/93 12/21/2024 12:37 PM EST Pulse 85 12/21/2024 12:37 PM EST Temperature 37.1 ??C (98.8 ??F) 12/21/2024 12:[address] Respiratory Rate 18 12/21/2024 12:37 PM EST Oxygen Saturation 92% 12/21/2024 12:37 PM EST Inhaled Oxygen Concentration - - Weight 123 kg (271 lb) 12/18/2024 7:17 PM EST Height 170.2 cm (5' 7 ) 12/18/2024 7:17 PM EST Body Mass Index 42.44 12/18/2024 7:17 PM EST Plan of Treatment Health Maintenance Due Date Last Done Comments Hepatitis B Vaccines (1 of 3 - 19+ 3-dose series) 2011 Pneumococcal Vaccine: Pediatrics (0 to 5 Years) and At-Risk Patients (6 to 64 Years) (1 of 2 - PCV) 2011 COVID-19 Vaccine (1 - 2023-2 5 season) 2024 Influenza Vaccine (#1) 2024 Cholesterol Screening (Lipid Panel) 12/19/2024 Depression Screening 12/19/2024 HIV Screening 12/19/2024 Hepatitis C Screening 12/19/2024 Social Influencers of Health Screening 12/19/2024 DTaP,Tdap,and Td Vaccines (3 - Td or Tdap) 03/02/2031 03/02/2021, 05/06/2020 HIB Vaccines Aged Out No longer eligi ble based on patient's age to complete this topic HPV Vaccines Aged Out No longer eligi ble based on patient's age to complete this topic Hepatitis A Vaccines Aged Out No long er eligible based on patient's age to complete this topic IPV Vaccines Aged Out No longer eligi ble based on patient's age to complete this topic MMR Vaccines Aged Out No longer eligi ble based on patient's age to complete this topic Meningococcal ACWY Vaccine Aged Out N o longer eligible based on patient's age to complete this topic Meningococcal B Vacine Aged Out No lo nger eligible based on patient's age to complete this topic RSV Immunization Patients Under 20 months Aged Out No longer eligible b ased on patient's age to complete this topic Varicella Vaccines Aged Out No longer eligible based on patient's age to complete this topic Procedures Procedure Name Priority Date/Time Associated Diagnosis Comments XR CHEST 1 VIEW Routine 12/20/2024 11:55 AM EST CBC WITH AUTO DIFFERENTIAL Routine 12/20/2024 6:13 AM EST MAGNESIUM Routine 12/20/2024 6:13 AM EST BASIC METABOLIC PANEL Routine 12/20/2024 6:13 AM EST CBC AND DIFFERENTIAL Routine 12/20/2024 6:13 AM EST OXYGEN THERAPY, ADULT STAT 12/19/2024 8:01 PM EST CBC WITH AUTO DIFFERENTIAL Routine 12/19/2024 8:09 AM EST MAGNESIUM Routine 12/19/2024 8:09 AM EST CBC AND DIFFERENTIAL Routine 12/19/2024 8:09 AM EST BASIC METABOLIC PANEL Routine 12/19/2024 8:09 AM EST OXYGEN THERAPY, ADULT STAT 12/19/2024 8:02 AM EST OXYGEN THERAPY, ADULT STAT 12/19/2024 3:50 AM EST OXYGEN THERAPY, ADULT STAT 12/19/2024 3:50 AM EST ARTERIAL BLOOD GAS STAT 12/19/2024 2: 45 AM EST TROPONIN I HIGH SENSITIVITY STAT 12/19/2024 1:24 AM EST LACTATE STAT 12/19/2024 1:[address] ANGIO CHEST WO AND/OR W CONTRAST STAT 12/19/2024 12:49 AM EST Shortness of breath CT ABDOMEN PELVIS W CONTRAST STAT 12/19/2024 12:49 AM EST VENOUS BLOOD GAS STAT 12/19/2024 12:1 8 AM EST LT GREEN - LI HEPARIN Routine 12/18/2024 11:52 PM EST EXTRA TUBES Routine 12/18/2024 11:52 PM EST CBC WITH AUTO DIFFERENTIAL STAT 12/18/2024 8:12 PM EST LIPASE STAT 12/18/2024 8:12 PM EST COMPREHENSIVE METABOLIC PANEL STAT 12/18/2024 8:12 PM EST CBC AND DIFFERENTIAL STAT 12/18/2024 8:12 PM EST [id number], RSV, FLU A AND B QUALITATIVE RT-PCR, INTERNAL LAB STAT 12/18/2024 8:12 PM EST ECG 12-LEAD STAT 12/18/2024 7:35 PM EST GA CRITICAL CARE EACH ADDITIONAL 30 MINUTES Routine 12/18/2024 7:09 PM EST GA CRITICAL CARE EACH ADDITIONAL 30 MINUTES Routine 12/18/2024 7:09 PM EST from Last 3 Months Results * XR Chest 1 View (12/20/2024 11:55 AM EST) Anatomical Region Laterality Modality Body Radiographic Annelise ging 12/20/2024 12:0 1 PM EST Impressions 12/20/2024 12:14 PM EST FINDINGS/IMPRESSION: No pneumonia or pulmonary edema. ??No pleural effusion or pneumothorax. ??Cardiac silhouette is normal in size. ??Multiple old posttraumatic deformities of the ribs and right clavicle noted. ??No acute displaced fracture. -------- FINAL REPORT -------- Dictated By: JARRELL PEÑALOZA Dictated Date: 12/20/2024 12:01 ET Assigned Physician: JARRELL PEÑALOZA Reviewed and Electronically Signed By: JARRELL PEÑALOZA Signed Date: 12/20/2024 12:14 ET Workstation ID: [id number] Transcribed By: Self Edit Transcribed Date: 12/20/2024 12:01 ET Narrative 12/20/2024 12:14 PM EST XR CHEST 1 VIEW INDICATION: ??Dyspnea TECHNIQUE: XR CHEST 1 VIEW COMPARISON: 12/16/2014 Procedure Note Jarrell Peñaloza MD - 12/20/2024 XR CHEST 1 VIEW INDICATION: Dyspnea TECHNIQUE: XR CHEST 1 VIEW COMPARISON: 12/16/2014 IMPRESSION: FINDINGS/IMPRESSION: No pneumonia or pulmonary edema. No pleural effusionor pneumothorax. Cardiac silhouette is normal in size. Multiple oldposttraumatic deformities of the ribs and right clavicle noted. No acutedisplaced fracture. -------- FINAL REPORT -------- Dictated By: JARRELL PEÑALOZA Dictated Date: 12/20/2024 12:01 ET Assigned Physician: JARRELL PEÑALOZA Reviewed and Electronically Signed By: JARRELL PEÑALOZA Signed Date: 12/20/2024 12:14 ET Workstation ID: [id number] Transcribed By: Self Edit Transcribed Date: 12/20/2024 12:01 ET Estate Sow[facility]a GILL IMG XR PROCEDURES Final Resu lt * (ABNORMAL) CBC auto differential (12/20/2024 6:13 AM EST) Only the most recent of3 resultswithin the time period is included. WBC 6.2 4.8 - 10.8 K/mcL LAB HEMETOLOGY METHOD 12/20/2024 7:22 AM [facility] RBC 4.90 4.50 - 5.50 M/mcL LAB HEMETOLOGY METHOD 12/20/2024 7:22 AM [facility] Hemoglobin 13.9 13.5 - 17.5 g/dL LAB HEMETOLOGY METHOD 12/20/2024 7:22 AM [facility] Hematocrit 42.5 42.0 - 54.0 % LAB HEMETOLOGY METHOD 12/20/2024 7:22 AM [facility] MCV 86.7 79.0 - 98.0 FL LAB HEMETOLOGY METHOD 12/20/2024 7:22 AM [facility] MCH 28.4 27.0 - 32.0 pcg LAB HEMETOLOGY METHOD 12/20/2024 7:22 AM [facility] MCHC 32.7 32.0 - 37.0 g/dL LAB HEMETOLOGY METHOD 12/20/2024 7:22 AM [facility] RDW 12.5 11.0 - 15.0 % LAB HEMETOLOGY METHOD 12/20/2024 7:22 AM [facility] Platelets 193 130 - 400 K/mcL LAB HEMETOLOGY METHOD 12/20/2024 7:22 AM [facility] MPV 10.7 7.0 - 11.0 FL LAB HEMETOLOGY METHOD 12/20/2024 7:22 AM [facility] NRBC 0.0 <1.0 % LAB HEMETOLOGY METHOD 12/20/2024 7:22 AM [facility] NRBC Absolute 0.00 <0.10 K/mcL LAB HEMETOLOGY METHOD 12/20/2024 7:22 AM [facility] Neutrophils Relative 76.1 % LAB HEMETOLOGY METHOD 12/20/2024 7:22 AM [facility] Lymphocytes Relative 13.8 % LAB HEMETOLOGY METHOD 12/20/2024 7:22 AM [facility] Monocytes Relative 9.8 % LAB HEMETOLOGY METHOD 12/20/2024 7:22 AM [facility] Eosinophils Relative 0.0 % LAB HEMETOLOGY METHOD 12/20/2024 7:22 AM [facility] Basophils Relative 0.0 % LAB HEMETOLOGY METHOD 12/20/2024 7:22 AM [facility] Immature Granulocytes Relative 0.3 % LAB HEMETOLOGY METHOD 12/20/2024 7:22 AM [facility] Neutrophils Absolute 4.74 1.50 - 7.00 K/mcL LAB HEMETOLOGY METHOD 12/20/2024 7:22 AM [facility] Lymphocytes Absolute 0.86(L) 1.00 - 5.00 K/mcL LAB HEMETOLOGY METHOD 12/20/2024 7:22 AM [facility] Monocytes Absolute 0.61 0.20 - 1.00 K/mcL LAB HEMETOLOGY METHOD 12/20/2024 7:22 AM [facility] Eosinophils Absolute 0.00 0.00 - 0.50 K/mcL LAB HEMETOLOGY METHOD 12/20/2024 7:22 AM EST [facility] Basophils Absolute 0.00 0.00 - 0.20 K/mcL LAB HEMETOLOGY METHOD 12/20/2024 7:22 AM [facility] Immature Granulocytes Absolute 0.02 0.00 - 0.03 K/mcL LAB HEMETOLOGY METHOD 12/20/2024 7:22 AM [facility] Blood Venous blood specimen / Unknown Venipuncture / Unknown 12/20/2024 6:13 AM EST 12/20/2024 7:13 AM EST Nel Alfaro LAB BLOOD ORDERABLES Final Res ult Performing Organization Address City/[facility]/ZIP Co de Phone Number [facility] [address] [place] [address], [place] [phone] * Magnesium (12/20/2024 6:13 AM EST) Only the most recent of2 resultswithin the time period is included. Magnesium 2.2 1.9 - 2.6 mg/dL LAB CHEMISTRY METHOD 12/20/2024 7:51 AM [facility] Blood Venous blood specimen / Unknown Venipuncture / Unknown 12/20/2024 6:13 AM EST 12/20/2024 7:14 AM EST Nel Angelina LAB BLOOD ORDERABLES Final Res ult Performing Organization Address City/[facility]/ZIP Co de Phone Number [facility] [address] [place] [address], [place] [phone] * (ABNORMAL) Basic metabolic panel (12/20/2024 6:13 AM EST) Only the most recent of2 resultswithin the time period is included. Sodium 137 133 - 145 mmol/L LAB CHEMISTRY METHOD 12/20/2024 7:52 AM [facility] Potassium 4.7 3.5 - 5.5 mmol/L LAB CHEMISTRY METHOD 12/20/2024 7:52 AM [facility] Chloride 105 96 - 110 mmol/L LAB CHEMISTRY METHOD 12/20/2024 7:52 AM [facility] CO2 30 21 - 32 mmol/L LAB CHEMISTRY METHOD 12/20/2024 7:52 AM [facility] Anion Gap 2(L) 3 - 11 LAB CHEMISTRY METHOD 12/20/2024 7:52 AM [facility] Glucose 106(H) 70 - 100 mg/dL LAB CHEMISTRY METHOD 12/20/2024 7:52 AM [facility] BUN 17 5 - 25 mg/dL LAB CHEMISTRY METHOD 12/20/2024 7:52 AM [facility] Creatinine 0.89 0.70 - 1.30 mg/dL LAB CHEMISTRY METHOD 12/20/2024 7:52 AM [facility] eGFR 117 >=60 mL/min/1. 73m2 LAB CHEMISTRY METHOD 12/20/2024 7:52 AM [facility] Comment:Calculation based on the??Chronic Kidney Disease Epidemiology Collaboration (CKD-EPI) equation refit??without adjustment for race. BUN/Creatinine Ratio 19.1 LAB CHEMISTRY METHOD 12/20/2024 7:52 AM [facility] Calcium 8.6 8.5 - 10.5 mg/dL LAB CHEMISTRY METHOD 12/20/2024 7:52 AM [facility] Blood Venous blood specimen / Unknown Venipuncture / Unknown 12/20/2024 6:13 AM EST 12/20/2024 7:14 AM EST us Nel Alfaro NP LAB BLOOD ORDERABLES Final Res ult [facility] [address] [place] [address], * (ABNORMAL) Arterial blood gas (12/19/2024 2:45 AM EST) [facility] pH, Arterial 7.40 7.35 - 7.45 pH 12/19/2024 3:06 AM [facility] pCO2, Arterial 41 35 - 45 mmHg 12/19/2024 3:06 AM [facility] pO2, Arterial 61(L) 80 - 100 mmHg 12/19/2024 3:06 AM [facility] HCO3, Arterial 25.1 22.0 - 26.0 mmol/L 12/19/2024 3:06 AM [facility] O2 Sat, Arterial 93.3(L) 95.0 - 98.0 % 12/19/2024 3:06 AM [facility] Base Excess, Arterial 0.5 -2.0 - 2.0 mmol/L 12/19/2024 3:06 AM [facility] Kiran Test Pass Pass, Unresponsi ve, Line 12/19/2024 3:06 AM [facility] FIO2 28.00 12/19/2024 3:06 AM [facility] Blood Arterial blood specimen / Unknown Arterial Puncture / Unknown 12/19/2024 2:45 AM EST 12/19/2024 2:48 AM EST us Margarita Kate MD LAB BLOOD ORDERABLES Fin al Result [facility] [address] [place] [address], * Troponin I high sensitivity (12/19/2024 1:24 AM EST) [facility] High Sensitivity Troponin I 10 <=79 ng/L LAB CHEMISTRY METHOD 12/19/2024 1:53 AM [facility] Blood Venous blood specimen / Unknown Venipuncture / Unknown 12/19/2024 1:24 AM EST 12/19/2024 1:30 AM EST Narrative [facility] - 12/19/2024 1:53 AM EST High levels of biotin in samples may falsely decrease hsTroponin values. ??Use caution when interpreting hsTroponin results in patients taking biotin who exhibit renal impairment (eGFR <60) or in patients taking more than 20 mg/day of biotin. Antonietta NOEL LAB BLOOD ORDERABLES Final Resu lt Performing Organization Address [facility] Co de Phone Number [facility] [address] [place] [address], [place] [phone] * Lactate (12/19/2024 1:24 AM EST) Lactate 1.6 0.4 - 2.0 mmol/L LAB CHEMISTRY METHOD 12/19/2024 1:53 AM EST [facility] Blood Venous blood specimen / Unknown Venipuncture / Unknown 12/19/2024 1:24 AM EST 12/19/2024 1:31 AM EST Antonietta NOEL LAB BLOOD ORDERABLES Final Resu lt Performing Organization Address [facility] Co de Phone Number [facility] [address] [place] [address], [place] [phone] * CT Abdomen Pelvis w Contrast (12/19/2024 12:49 AM EST) Anatomical Region Laterality Modality Body Computed Tomogra phy 12/19/2024 1:31 AM EST Impressions 12/19/2024 1:31 AM EST Mildly diffuse distal colonic mural thickening, may be related to degree of under distention or mild colitis. This document has been electronically signed by: Jignesh Ortega MD on 12/19/2024 01:31:48 Narrative 12/19/2024 1:31 AM EST INDICATION: diffuse pain, extensive abd surgeries CT abdomen and pelvis with contrast Comparison: None Findings: No consolidation or effusion. Please see same day CTA chest report. Hepatic steatosis noted. Remaining visceral organs are unremarkable. Mildly diffuse distal colonic mural thickening. No bowel obstruction. Mildly diffuse distal colonic mural thickening, may be related to degree of under distention or mild colitis. Postsurgical abdominal wall changes with periumbilical fat containing hernias. Fat containing inguinal hernias. Colonic diverticulosis without focal diverticulitis. No acute fracture. Prominent inguinal nodes. Plate and screw fixation across the left hip. Procedure Note Jignesh Ortega MD - 12/19/2024 INDICATION: diffuse pain, extensive abd surgeries CT abdomen and pelvis with contrast Comparison: None Findings: No consolidation or effusion. Please see same day CTA chest report. Hepatic steatosis noted. Remaining visceral organs are unremarkable. Mildly diffuse distal colonic mural thickening. No bowel obstruction. Mildly diffuse distal colonic mural thickening, may be related to degree of under distention or mild colitis. Postsurgical abdominal wall changes with periumbilical fat containing hernias. Fat containing inguinal hernias. Colonic diverticulosis without focal diverticulitis. No acute fracture. Prominent inguinal nodes. Plate and screw fixation across the left hip. IMPRESSION: Mildly diffuse distal colonic mural thickening, may be related to degree of under distention or mild colitis. This document has been electronically signed by: Jignesh Ortega MD on 12/19/2024 01:31:[address] PROCEDURES Final Result * CT Angio Chest wo and/or w Contrast (12/19/2024 12:49 AM EST) Anatomical Region Laterality Modality Body Computed Tomogra phy 12/19/2024 1:37 AM EST Impressions 12/19/2024 1:37 AM EST Motion degraded exam. 1. No large central pulmonary embolus. Remaining pulmonary arteries are poorly opacified not well evaluated. 2. Linear ill-defined consolidations in the right upper lobe. Although this may be related to atelectasis, developing pneumonia not excluded. Clinical correlation with follow-up advised. This document has been electronically signed by: Jignesh Ortega MD on 12/19/2024 01:37:19 Narrative 12/19/2024 1:37 AM EST INDICATION: CP / SOB hypoxic CT angiography chest with contrast. 3D Postprocessing. Comparison: None Findings: Motion and streak artifact limit evaluation. The heart is normal size. RV/LV ratio is normal. The thoracic aorta is normal caliber. No large central pulmonary embolus. Remaining pulmonary arteries are poorly opacified not well evaluated. The visualized thyroid and mediastinum are unremarkable. Atelectasis, With ill-defined linear consolidations in the right upper lobe. Please see same day CT abdomen pelvis report. Chronic appearing bilateral rib fractures. Procedure Note Jignesh Ortega MD - 12/19/2024 INDICATION: CP / SOB hypoxic CT angiography chest with contrast. 3D Postprocessing. Comparison: None Findings: Motion and streak artifact limit evaluation. The heart is normal size. RV/LV ratio is normal. The thoracic aorta is normal caliber. No large central pulmonary embolus. Remaining pulmonary arteries are poorly opacified not well evaluated. The visualized thyroid and mediastinum are unremarkable. Atelectasis, With ill-defined linear consolidations in the right upper lobe. Please see same day CT abdomen pelvis report. Chronic appearing bilateral rib fractures. IMPRESSION: Motion degraded exam. 1. No large central pulmonary embolus. Remaining pulmonary arteries are poorly opacified not well evaluated. 2. Linear ill-defined consolidations in the right upper lobe. Although this may be related to atelectasis, developing pneumonia not excluded. Clinical correlation with follow-up advised. This document has been electronically signed by: Jignesh Ortega MD on 12/19/2024 01:37:19 Antonietta NOEL [facility] CT PROCEDURES Final Result * (ABNORMAL) Venous blood gas (12/19/2024 12:18 AM EST) pH, Cole 7.38 7.32 - 7.42 pH 12/19/2024 12:29 AM [facility] pCO2, Cole 44 41 - 51 mmHg 12/19/2024 12:29 AM [facility] pO2, Cole 83(H) 25 - 40 mmHg 12/19/2024 12:29 AM [facility] HCO3, Venous 25.3 22.0 - 26.0 mmol/L 12/19/2024 12:29 AM [facility] O2 Sat, Cole 98.5 % 12/19/2024 12:29 AM [facility] Base Excess, Cole 0.5 -2.0 - 2.0 mmol/L 12/19/2024 12:29 AM [facility] Blood Venous blood specimen / Unknown Venipuncture / Unknown 12/19/2024 12:18 AM EST 12/19/2024 12:27 AM EST us Antonietta NOEL LAB BLOOD ORDERABLES Final Resu lt Performing Organization Address [facility]/ZIP Co de Phone Number [facility] [address] [place] [address], [place] [phone] * Green LI heparin tube (12/18/2024 11:52 PM EST) [facility] Extra Tube Hold for add-ons. 12/19/2024 2:01 AM [facility] Comment:Auto resulted. Blood Venous blood specimen / Unknown 12/18/2024 11:52 PM EST 12/19/2024 12:28 AM EST us Antoinetta NOEL LAB BLOOD ORDERABLES Final Resu lt Performing Organization Address City/[facility]/ZIP Co de Phone Number [facility] [address] [place] [address], [place] [phone] * (ABNORMAL) [id number], RSV, Influenza A and B qualitative RT-PCR (12/18/2024 8:12 PM EST) [facility] Influenza A PCR Detected(A) Not Detected LAB MICROBIOLOGY METHOD 12/18/2024 9:56 PM [facility] Influenza B PCR Not Detected Not Detected LAB MICROBIOLOGY METHOD 12/18/2024 9:56 PM [facility] RSV PCR Not Detected Not Detected LAB MICROBIOLOGY METHOD 12/18/2024 9:56 PM EST [facility] SARS COV-2 Not Detected Not Detected LAB MICROBIOLOGY METHOD 12/18/2024 9:56 PM EST [facility] Swab Both anterior nares / Unknown Non-blood Collection / Unknown 12/18/2024 8:12 PM EST 12/18/2024 8:55 PM EST Narrative [facility] - 12/18/2024 9:56 PM EST Disclaimer: ??Testing was performed using the [employer]com[employer] Xpress SARS-CoV-2 _Flu_RSV PLUS PCR assay. ??The manner in which this information is used to guide patient care is the responsibility of the healthcare provider. ??Results should be correlated with the clinical history, epidemiological data, and other data available to the clinician evaluating the patient. ??Negative results do not preclude infection. ??This test has been authorized by the FDA under an Emergency Use Authorization (EUA). ??This test is only authorized for the duration of time the declaration that circumstances exist justifying the authorization of the emergency use of in vitro diagnostic tests for detection of SARS-CoV-2 virus and/or diagnosis of COVID-19 infection under section 564 (b) (1) of the Act, 21 U.S.C 360bbb-3 (b) (1), unless the authorization is terminated or revoked sooner. ?? Reference Range: Not Detected Fact sheet for Healthcare providers can be found at https://www.fda.gov/media/846643/download. ?? Fact sheet for Healthcare patients can be found at https://www.fda.gov/media/669483/download. Antonietta NOEL LAB MICROBIOLOGY - GENERAL AGNES ARZATE Final Result [facility] [address] [place] [address], * Lipase (12/18/2024 8:12 PM EST) Lipase 19 13 - 75 unit/L LAB CHEMISTRY METHOD 12/18/2024 9:35 PM [facility] Blood Venous blood specimen / Unknown Venipuncture / Unknown 12/18/2024 8:12 PM EST 12/18/2024 8:54 PM EST us Antonietta NEOL LAB BLOOD ORDERABLES Final Resu lt [facility] [address] [place] [address], [place] [phone] * (ABNORMAL) Comprehensive metabolic panel (12/18/2024 8:12 PM EST) [facility] Sodium 136 133 - 145 mmol/L LAB CHEMISTRY METHOD 12/18/2024 9:37 PM [facility] Potassium 4.0 3.5 - 5.5 mmol/L LAB CHEMISTRY METHOD 12/18/2024 9:37 PM [facility] Chloride 103 96 - 110 mmol/L LAB CHEMISTRY METHOD 12/18/2024 9:37 PM [facility] CO2 23 21 - 32 mmol/L LAB CHEMISTRY METHOD 12/18/2024 9:37 PM [facility] Anion Gap 10 3 - 11 LAB CHEMISTRY METHOD 12/18/2024 9:37 PM [facility] Glucose 101(H) 70 - 100 mg/dL LAB CHEMISTRY METHOD 12/18/2024 9:37 PM [facility] BUN 13 5 - 25 mg/dL LAB CHEMISTRY METHOD 12/18/2024 9:37 PM [facility] Creatinine 1.02 0.70 - 1.30 mg/dL LAB CHEMISTRY METHOD 12/18/2024 9:37 PM [facility] eGFR 100 >=60 mL/min/1. 73m2 LAB CHEMISTRY METHOD 12/18/2024 9:37 PM [facility] Comment:Calculation based on the??Chronic Kidney Disease Epidemiology Collaboration (CKD-EPI) equation refit??without adjustment for race. BUN/Creatinine Ratio 12.7 LAB CHEMISTRY METHOD 12/18/2024 9:37 PM [facility] Calcium 9.1 8.5 - 10.5 mg/dL LAB CHEMISTRY METHOD 12/18/2024 9:37 PM [facility] AST (SGOT) 29 10 - 42 unit/L LAB CHEMISTRY METHOD 12/18/2024 9:37 PM [facility] ALT (SGPT) 35 10 - 60 unit/L LAB CHEMISTRY METHOD 12/18/2024 9:37 PM [facility] Alkaline Phosphatase 95 42 - 121 unit/L LAB CHEMISTRY METHOD 12/18/2024 9:37 PM [facility] Total Protein 8.0 6.0 - 8.0 g/dL LAB CHEMISTRY METHOD 12/18/2024 9:37 PM [facility] Albumin 4.1 3.2 - 5.0 g/dL LAB CHEMISTRY METHOD 12/18/2024 9:37 PM [facility] Total Bilirubin 1.8(H) 0.0 - 1.4 mg/dL LAB CHEMISTRY METHOD 12/18/2024 9:37 PM [facility] Blood Venous blood specimen / Unknown Venipuncture / Unknown 12/18/2024 8:12 PM EST 12/18/2024 8:54 PM EST us Antonietta NOEL LAB BLOOD ORDERABLES Final Resu lt [facility] [address] [place] [address], * ECG 12 lead (12/18/2024 7:35 PM EST) Ventricular Rate ECG 125 BPM GEMUSE Atrial Rate 125 BPM GEMUSE P-R Interval 178 ms GEMUSE QRS Duration 74 ms GEMUSE Q-T Interval 280 ms GEMUSE QTc 404 ms GEMUSE P Wave [place] 70 degrees GEMUSE R [place] 66 degrees GEMUSE T [place] 43 degrees GEMUSE ECG Interpretation Sinus tachycardia Otherwise normal ECG When compared with ECG of 16-DEC-2014 17:52, Vent. rate has increased BY ??52 BPM Confirmed by Cherelle OSUNA YUFENG ([id number]) on 12/19/2024 12:36:01 PM GEMUSE 12/18/2024 7:35 PM EST 12/19/2024 12:36 PM EST us Antonietta NOEL ECG ORDERABLES Final Result GEMUSE * GA CRITICAL CARE EACH ADDITIONAL 30 MINUTES, GA CRITICAL CARE EACH ADDITIONAL 30 MINUTES (12/18/2024 7:09 PM EST) Narrative Alin Wiseman, DO - 12/18/2024 7:09 PM EST SADIE Estevez ? 12/19/2024 ??3:28 AM Critical Care Performed by: SADIE Estevez Authorized by: Margarita Kate MD ?? Critical care provider statement: ??Critical care time (minutes): ??75 ??Critical care time was exclusive of: ??Separately billable procedures and treating other patients ??Critical care was necessary to treat or prevent imminent or life-threatening deterioration of the following conditions: ??Respiratory failure ??Critical care was time spent personally by me on the following activities: ??Discussions with consultants, pulse oximetry, re-evaluation of patient's condition, ordering and review of radiographic studies, ordering and review of laboratory studies, ordering and performing treatments and interventions, blood draw for specimens, examination of patient and review of old charts ??I assumed direction of critical care for this patient from another provider in my specialty: yes ?Care discussed with: admitting provider ?? us Margarita Kate MD IN CLINIC/BEDSIDE ORDERA BLES Final Result from Last 3 Months Insurance [facility] Advance Directives * Full Code - Default (Latest Code Status on File) Date Activated Date Inactivated Comments 12/19/2024 3:15 AM 12/21/2024 5:10 PM This is order is used when code status has not been discussed with the patient, or code status is otherwise unknown/unconfirmed To update the patient's code status, place a code status order. Do not modify or discontinue any currently active code status orders. Care Teams Center Receptionist Relationship Specialty Start Date End Date Phani Del Valle DO [facility] [address] [place] [address] PCP - General Internal Medicine 02/23/21
== END 2025-02-14 10:11 | disposition home or self-care (01) ==
LOC: HO.US 10:10
PROVIDERS: PCP Internal Medicine; Visit Provider Internal Medicine
DX: R10.9 Unspecified abdominal pain (principal)
CPT/HCPCS: 76700

== ENCOUNTER → 2025-02-14 10:11 | Outpatient (BNV) | payer BC, SELFPAY | PROVIDERS: PCP Internal Medicine; Visit Provider Radiology Diagnostic Radiology | DX: K76.0 Fatty (change of) liver, not elsewhere classified (principal); R16.0 Hepatomegaly, not elsewhere classified | CPT/HCPCS: 76700 ==

== ENCOUNTER 2025-02-26 10:02 | Outpatient (AMB) | payer BC, SELFPAY ==
[2025-02-26 10:04] VITALS: BP 130/96; PULSE 86; O2SAT 96; BMI 37.7
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
--- OUTSIDE RECORDS SUMMARY | 2025-02-26 11:36 | XMS_ITS | Clinical Summary ---
Author Organization [facility] Address [address] [place] [address] Phone Care Team Providers Care Stunt Person Name Role Phone Phani Del Valle DO [...] shortness of breath or wheezing. 6.7 g 5 Active Active Problems Problem Noted Date Diagnosed Date Influenza A 12/19/2024 TBI (traumatic brain injury) (CMS/HCC V24, CMS/H CC V28) 12/19/2024 Moderate asthma without complication 12/19/2024 Obesity (BMI 35.0-39.9 without comorbidity) 04/2025 Severe obesity ([facility] V24, [facility] V28) 2024 Resolved Problems Problem Noted Date Diagnosed Date Resolved Date Acute hypoxemic respiratory failure ([facility] V24, [facility] V28) 12/19/2024 12/21/2024 Encounters Date Type Department Care Team Description 12/18/2024 8:38 PM EST - 12/21/2024 3:10 PM EST Hospital Encounter [facility] [address] [place] [address] Shaun Mcintosh MD Japaridze, Anna, MD Flores, Carlos M, MD Kokosadze, MD Cristino Shortness of breath (Primary Dx); Influenza A; Moderate asthma with exacerbation, unspecified whether persistent; Acute hypoxic respiratory failure ([facility] V24, [facility] V28) Discharge Disposition: Home or Self Care from [...] of 2 - PCV) 2011 COVID-19 Vaccine ( - 2023-2 5 season) 2024 Cholesterol Screening (Lipid Panel) 12/19/2024 Depression Screening 12/19/2024 HIV Screening 12/19/2024 Hepatitis C Screening 12/19/2024 Social Influencers of Health Screening 12/19/2024 Influenza Vaccine (Season Ended) 2025 DTaP,Tdap,and Td Vaccines (3 - Td or [...] age to complete this topic Meningococcal B Vaccine Aged Out No l onger eligible based on patient's age to complete [...] AND DIFFERENTIAL STAT 12/18/2024 8:12 PM EST [id number], RSV, FLU A AND B QUALITATIVE RT-PCR, INTERNAL LAB STAT 12/18/2024 8:12 PM EST ECG 12-LEAD STAT 12/18/2024 7:35 PM EST ME CRITICAL CARE EACH ADDITIONAL 30 MINUTES Routine 12/18/2024 7:09 PM EST ME CRITICAL CARE EACH ADDITIONAL 30 MINUTES Routine [...] Signed Date: 12/20/2024 12:14 ET Workstation ID: [id number] Transcribed By: Self Edit Transcribed Date: 12/20/2024 [...] Signed Date: 12/20/2024 12:14 ET Workstation ID: [id number] Transcribed By: Self Edit Transcribed Date: 12/20/2024 12:01 ET [facility] GILL IMG XR PROCEDURES Final Resu lt * (ABNORMAL) CBC auto differential (12/20/2024 6:13 AM EST) Only the most recent of3 resultswithin the time period is included. WBC 6.2 4.8 - 10.8 K/mcL LAB HEMETOLOGY METHOD 12/20/2024 7:22 AM [facility] RBC 4.90 4.50 - 5.50 M/mcL LAB HEMETOLOGY METHOD 12/20/2024 7:22 AM [facility] Hemoglobin 13.9 13.5 - 17.5 g/dL LAB HEMETOLOGY METHOD 12/20/2024 7:22 AM [facility] Hematocrit 42.5 42.0 - 54.0 % LAB HEMETOLOGY METHOD 12/20/2024 7:22 AM [facility] MCV 86.7 79.0 - 98.0 FL LAB HEMETOLOGY METHOD 12/20/2024 7:22 AM [facility] MCH 28.4 27.0 - 32.0 pcg LAB HEMETOLOGY METHOD 12/20/2024 7:22 AM [facility] MCHC 32.7 32.0 - 37.0 g/dL LAB HEMETOLOGY METHOD 12/20/2024 7:22 AM [facility] RDW 12.5 11.0 - 15.0 % LAB HEMETOLOGY METHOD 12/20/2024 7:22 AM [facility] Platelets 193 130 - 400 K/mcL LAB HEMETOLOGY METHOD 12/20/2024 7:22 AM [facility] MPV 10.7 7.0 - 11.0 FL LAB HEMETOLOGY METHOD 12/20/2024 7:22 AM [facility] NRBC 0.0 <1.0 % LAB HEMETOLOGY METHOD 12/20/2024 7:22 AM [facility] NRBC Absolute 0.00 <0.10 K/mcL LAB HEMETOLOGY METHOD 12/20/2024 7:22 AM [facility] Neutrophils Relative 76.1 % LAB HEMETOLOGY METHOD 12/20/2024 7:22 AM [facility] Lymphocytes Relative 13.8 % LAB HEMETOLOGY METHOD 12/20/2024 7:22 AM [facility] Monocytes Relative 9.8 % LAB HEMETOLOGY METHOD 12/20/2024 7:22 AM [facility] Eosinophils Relative 0.0 % LAB HEMETOLOGY METHOD 12/20/2024 7:22 AM [facility] Basophils Relative 0.0 % LAB HEMETOLOGY METHOD 12/20/2024 7:22 AM [facility] Immature Granulocytes Relative 0.3 % LAB HEMETOLOGY METHOD 12/20/2024 7:22 AM [facility] Neutrophils Absolute 4.74 1.50 - 7.00 K/mcL LAB HEMETOLOGY METHOD 12/20/2024 7:22 AM [facility] Lymphocytes Absolute 0.86(L) 1.00 - 5.00 K/mcL LAB HEMETOLOGY METHOD 12/20/2024 7:22 AM [facility] Monocytes Absolute 0.61 0.20 - 1.00 K/mcL LAB HEMETOLOGY METHOD 12/20/2024 7:22 AM EST [facility] Eosinophils Absolute 0.00 0.00 - 0.50 K/mcL LAB HEMETOLOGY METHOD 12/20/2024 7:22 AM EST [facility] Basophils Absolute 0.00 0.00 - 0.20 K/mcL LAB HEMETOLOGY METHOD 12/20/2024 7:22 AM EST [facility] Immature Granulocytes Absolute 0.02 0.00 - 0.03 K/[facility] LAB HEMETOLOGY METHOD 12/20/2024 7:22 AM EST [facility] Blood Venous blood specimen / Unknown Venipuncture / Unknown 12/20/2024 6:13 AM EST 12/20/2024 7:13 AM EST [facility] LAB BLOOD ORDERABLES Final Res ult Performing Organization Address City/[facility]/ZIP Co de Phone Number [facility] [address] [place] [address], [place] [phone] * Magnesium (12/20/2024 6:13 AM EST) Only the most recent of2 resultswithin the time period is included. [facility] Magnesium 2.2 1.9 - 2.6 mg/dL LAB CHEMISTRY METHOD 12/20/2024 7:51 AM EST [facility] Blood Venous blood specimen / Unknown Venipuncture / Unknown 12/20/2024 6:13 AM EST 12/20/2024 7:14 AM EST [facility] LAB BLOOD ORDERABLES Final Res ult [facility] [address] [place] [address], [place] [phone] * (ABNORMAL) Basic metabolic panel (12/20/2024 6:13 AM EST) Only the most recent of2 resultswithin the time period is included. [facility] Sodium 137 133 - 145 mmol/L LAB CHEMISTRY METHOD 12/20/2024 7:52 AM [facility] Potassium 4.7 3.5 - 5.5 mmol/L LAB CHEMISTRY METHOD 12/20/2024 7:52 AM [facility] Chloride 105 96 - 110 mmol/L LAB CHEMISTRY METHOD 12/20/2024 7:52 AM [facility] CO2 30 21 - 32 mmol/L LAB CHEMISTRY METHOD 12/20/2024 7:52 AM [facility] Anion Gap 2(L) 3 - 11 LAB CHEMISTRY METHOD 12/20/2024 7:52 AM [facility] Glucose 106(H) 70 - 100 mg/dL LAB CHEMISTRY METHOD 12/20/2024 7:52 AM [facility] BUN 17 5 - 25 mg/dL LAB CHEMISTRY METHOD 12/20/2024 7:52 AM [facility] Creatinine 0.89 0.70 - 1.30 mg/dL LAB CHEMISTRY METHOD 12/20/2024 7:52 AM [facility] eGFR 117 >=60 mL/min/1. 73m2 LAB CHEMISTRY METHOD 12/20/2024 7:52 AM [facility] Comment:Calculation based on the??Chronic Kidney Disease Epidemiology Collaboration (CKD-EPI) equation refit??without adjustment for race. BUN/Creatinine Ratio 19.1 LAB CHEMISTRY METHOD 12/20/2024 7:52 AM [facility] Calcium 8.6 8.5 - 10.5 mg/dL LAB CHEMISTRY METHOD 12/20/2024 7:52 AM [facility] Blood Venous blood specimen / Unknown Venipuncture / Unknown 12/20/2024 6:13 AM EST 12/20/2024 7:14 AM EST us Nel Alfaro NP LAB BLOOD ORDERABLES Final Res ult [facility] [address] [place] [address], [place] [phone] * (ABNORMAL) Arterial blood gas (12/19/2024 2:45 AM EST) [facility] pH, Arterial 7.40 7.35 - 7.45 pH 12/19/2024 3:06 AM [facility] pCO2, Arterial 41 35 - 45 mmHg 12/19/2024 3:06 AM [facility] pO2, Arterial 61(L) 80 - 100 mmHg 12/19/2024 3:06 AM [facility] HCO3, Arterial 25.1 22.0 - 26.0 mmol/L 12/19/2024 3:06 AM [facility] O2 Sat, Arterial 93.3(L) 95.0 - 98.0 % 12/19/2024 3:06 AM [facility] Base Excess, Arterial 0.5 -2.0 - 2.0 mmol/L 12/19/2024 3:06 AM [facility] Kiran Test Pass Pass, Unresponsi ve, Line 12/19/2024 3:06 AM [facility] FIO2 28.00 12/19/2024 3:06 AM [facility] Blood Arterial blood specimen / Unknown Arterial Puncture / Unknown 12/19/2024 2:45 AM EST 12/19/2024 2:48 AM EST us Margarita Kate MD LAB BLOOD ORDERABLES Fin al Result [facility] [address] [place] [address], [place] [phone] * Troponin I high sensitivity (12/19/2024 1:24 AM EST) [facility] High Sensitivity Troponin I 10 <=79 ng/L LAB CHEMISTRY METHOD 12/19/2024 1:53 AM EST [facility] Blood Venous blood specimen / Unknown Venipuncture / Unknown 12/19/2024 1:24 AM EST 12/19/2024 1:30 AM EST Narrative [facility] - 12/19/2024 1:53 AM EST High levels of biotin in samples may falsely decrease hsTroponin values. ??Use caution when interpreting hsTroponin results in patients taking biotin who exhibit renal impairment (eGFR <60) or in patients taking more than 20 mg/day of biotin. Antonietta NOEL LAB BLOOD ORDERABLES Final Resu lt Performing Organization Address City/[facility]/ZIP Co de Phone Number [facility] [address] [place] [address], [place] [phone] * Lactate (12/19/2024 1:24 AM EST) Lactate 1.6 0.4 - 2.0 mmol/L LAB CHEMISTRY METHOD 12/19/2024 1:53 AM EST [facility] Blood Venous blood specimen / Unknown Venipuncture / Unknown 12/19/2024 1:24 AM EST 12/19/2024 1:31 AM EST Antonietta NOEL LAB BLOOD ORDERABLES Final Resu lt Performing Organization Address City/[facility]/ZIP Co de Phone Number [facility] [address] [place] [address], [place] [phone] * CT Abdomen Pelvis w Contrast (12/19/2024 [...] Ortega MD on 12/19/2024 01:31:48 Antonietta NOEL [facility] [place] PROCEDURES Final Result * CT Angio [...] Ortega MD on 12/19/2024 01:37:19 Antonietta NOEL [facility] [place] PROCEDURES Final Result * (ABNORMAL) Venous blood gas (12/19/2024 12:18 AM EST) pH, Cole 7.38 7.32 - 7.42 pH 12/19/2024 12:29 AM EST [facility] pCO2, Cole 44 41 - 51 mmHg 12/19/2024 12:29 AM [facility] pO2, Cole 83(H) 25 - 40 mmHg 12/19/2024 12:29 AM [facility] HCO3, Venous 25.3 22.0 - 26.0 mmol/L 12/19/2024 12:29 AM [facility] O2 Sat, Cole 98.5 % 12/19/2024 12:29 AM [facility] Base Excess, Cole 0.5 -2.0 - 2.0 mmol/L 12/19/2024 12:29 AM [facility] Blood Venous blood specimen / Unknown Venipuncture / Unknown 12/19/2024 12:18 AM EST 12/19/2024 12:27 AM EST Antonietta NOEL LAB BLOOD ORDERABLES Final Resu lt Performing Organization Address City/[facility]/ZIP Co de Phone Number [facility] [address] [place] [address], [place] [phone] * Green LI heparin tube (12/18/2024 11:52 PM EST) Pathologist [facility] [place] Extra Tube Hold for add-ons. 12/19/2024 2:01 AM [facility] Comment:Auto resulted. Blood Venous blood specimen / Unknown 12/18/2024 11:52 PM EST 12/19/2024 12:28 AM EST Antonietta NOEL LAB BLOOD ORDERABLES Final Resu lt [facility] [address] [place] [address], [place] [phone] * (ABNORMAL) [id number], RSV, Influenza A and B qualitative RT-PCR (12/18/2024 8:12 PM EST) Pathologist [facility] [place] Influenza A PCR Detected(A) Not Detected LAB MICROBIOLOGY METHOD 12/18/2024 9:56 PM EST [facility] Influenza B PCR Not Detected Not Detected LAB MICROBIOLOGY METHOD 12/18/2024 9:56 PM EST [facility] RSV PCR Not Detected Not Detected LAB MICROBIOLOGY METHOD 12/18/2024 9:56 PM EST [facility] SARS COV-2 Not Detected Not Detected LAB MICROBIOLOGY METHOD 12/18/2024 9:56 PM [facility] Swab Both anterior nares / Unknown Non-blood Collection / Unknown 12/18/2024 8:12 PM EST 12/18/2024 8:55 PM EST [facility] - 12/18/2024 9:56 PM EST Disclaimer: ??Testing was performed using the [employer] GeneXpert Xpress SARS-CoV-2 _Flu_RSV PLUS PCR assay. ??The [...] for Healthcare providers can be found at https://www.fda.gov/media/796696/download. ?? Fact sheet for Healthcare patients can be found at https://www.fda.gov/media/931938/download. Antonietta NOEL LAB MICROBIOLOGY - GENERAL AGNES ARZATE Final Result [facility] [address] [place] [address], [place] [phone] * Lipase (12/18/2024 8:12 PM EST) Lipase 19 13 - 75 unit/L LAB CHEMISTRY METHOD 12/18/2024 9:35 PM [facility] Blood Venous blood specimen / Unknown Venipuncture / Unknown 12/18/2024 8:12 PM EST 12/18/2024 8:54 PM EST us Antonietta NOEL LAB BLOOD ORDERABLES Final Resu lt [facility] [address] [place] [address], [place] [phone] * (ABNORMAL) Comprehensive metabolic panel (12/18/2024 8:12 PM EST) Pathologist [facility] [place] Sodium 136 133 - 145 mmol/L LAB CHEMISTRY METHOD 12/18/2024 9:37 PM [facility] Potassium 4.0 3.5 - 5.5 mmol/L LAB CHEMISTRY METHOD 12/18/2024 9:37 PM [facility] Chloride 103 96 - 110 mmol/L LAB CHEMISTRY METHOD 12/18/2024 9:37 PM [facility] CO2 23 21 - 32 mmol/L LAB CHEMISTRY METHOD 12/18/2024 9:37 PM [facility] Anion Gap 10 3 - 11 LAB CHEMISTRY METHOD 12/18/2024 9:37 PM [facility] Glucose 101(H) 70 - 100 mg/dL LAB CHEMISTRY METHOD 12/18/2024 9:37 PM [facility] BUN 13 5 - 25 mg/dL LAB CHEMISTRY METHOD 12/18/2024 9:37 PM [facility] Creatinine 1.02 0.70 - 1.30 mg/dL LAB CHEMISTRY METHOD 12/18/2024 9:37 PM [facility] eGFR 100 >=60 mL/min/1. 73m2 LAB CHEMISTRY METHOD 12/18/2024 9:37 PM [facility] Comment:Calculation based on the??Chronic Kidney Disease Epidemiology Collaboration (CKD-EPI) equation refit??without adjustment for race. BUN/Creatinine Ratio 12.7 LAB CHEMISTRY METHOD 12/18/2024 9:37 PM [facility] Calcium 9.1 8.5 - 10.5 mg/dL LAB CHEMISTRY METHOD 12/18/2024 9:37 PM [facility] AST (SGOT) 29 10 - 42 unit/L LAB CHEMISTRY METHOD 12/18/2024 9:37 PM [facility] ALT (SGPT) 35 10 - 60 unit/L LAB CHEMISTRY METHOD 12/18/2024 9:37 PM [facility] Alkaline Phosphatase 95 42 - 121 unit/L LAB CHEMISTRY METHOD 12/18/2024 9:37 PM [facility] Total Protein 8.0 6.0 - 8.0 g/dL LAB CHEMISTRY METHOD 12/18/2024 9:37 PM [facility] Albumin 4.1 3.2 - 5.0 g/dL LAB CHEMISTRY METHOD 12/18/2024 9:37 PM [facility] Total Bilirubin 1.8(H) 0.0 - 1.4 mg/dL LAB CHEMISTRY METHOD 12/18/2024 9:37 PM [facility] Blood Venous blood specimen / Unknown Venipuncture / Unknown 12/18/2024 8:12 PM EST 12/18/2024 8:54 PM EST us Antonietta NOEL LAB BLOOD ORDERABLES Final Resu lt [facility] [address] [place] [address], * ECG 12 lead (12/18/2024 7:35 PM EST) Ventricular Rate ECG 125 BPM GEMUSE Atrial Rate 125 BPM GEMUSE P-R Interval 178 ms GEMUSE QRS Duration 74 ms GEMUSE Q-T Interval 280 ms GEMUSE QTc 404 ms GEMUSE P Wave Newton 70 degrees GEMUSE R [place] 66 degrees GEMUSE T [place] 43 degrees GEMUSE ECG Interpretation Sinus tachycardia Otherwise normal ECG When compared with ECG of 16-DEC-2014 17:52, Vent. rate has increased BY ??52 BPM Confirmed by Cherelle OSUNA YUFENG ([id number]) on 12/19/2024 12:36:01 PM GEMUSE 12/18/2024 7:35 PM EST 12/19/2024 12:36 PM EST us Antonietta NOEL ECG ORDERABLES Final Result GEMUSE * ME CRITICAL CARE EACH ADDITIONAL 30 MINUTES, ME CRITICAL CARE EACH ADDITIONAL 30 MINUTES (12/18/2024 7:09 PM EST) Narrative Ivone Alin Scott, DO - 12/18/2024 7:09 PM EST SADIE [...] Final Result from Last 3 Months Insurance [facility] PLAN Advance Directives * Full Code - [...] currently active code status orders. Care Teams Stunt Person Relationship Specialty Start Date End Date Phani Del Valle DO [facility] [address] [place] [id number] PCP - General Internal Medicine 02/23/21
== END 2025-02-26 10:36 | disposition home or self-care (01) ==
LOC: HO.HMCH 10:02
PROVIDERS: PCP Internal Medicine; Visit Provider Internal Medicine
DX: M25.552 Pain in left hip (principal); S06.9X9S Unspecified intracranial injury with loss of consciousness of unspecified duration, sequela; F31.9 Bipolar disorder, unspecified; I10 Essential (primary) hypertension; G47.00 Insomnia, unspecified; F41.9 Anxiety disorder, unspecified; E66.9 Obesity, unspecified

== ENCOUNTER 2025-02-26 10:02 | Outpatient (REF) | payer BC, SELFPAY ==
--- NOTE | ~2025-02-26 | XR_ITS ---
EXAMINATION: XR HIP 2 OR MORE VIEWS LEFT HISTORY: M25.552 - Pain in left hip COMPARISON: There are no prior studies for comparison. FINDINGS: Two views of the left hip are submitted. Osseous mineralization is normal. The patient is status post acetabular reconstruction with plates and screws. No acute fracture is seen. Multiple osseous densities are seen about the femoral head and neck which may represent loose bodies within the joint space or heterotopic bone formation. The joint space is maintained. The soft tissues are unremarkable. XR/XR hip LT min 2V IMPRESSION: Status post acetabular reconstruction. Multiple osseous densities about the femoral head and neck which may represent loose bodies or heterotopic bone formation. Electronically signed by: Phani Santo MD 02/27/2025 08:47 AM EDT
--- OUTSIDE RECORDS SUMMARY | 2025-02-26 13:02 | XMS_ITS | Clinical Summary ---
Author Organization [facility] Address [address] [place] [address] Phone Care Team Providers Care Windows Desktop Support Name Role Phone Phani Del Valle DO [...] (BMI 35.0-39.9 without comorbidity) 04/2025 Severe obesity ([facility] [place] [place] V24, [facility] [place] [place] V28) 2024 Resolved Problems Problem Noted Date Diagnosed Date Resolved Date Acute hypoxemic respiratory failure ([facility] [place] [place] V24, [facility] [place] [place] V28) 12/19/2024 12/21/2024 Encounters Date Type Department Care Team Description 12/18/2024 8:38 PM EST - 12/21/2024 3:10 PM EST Hospital Encounter [facility] Unit [address] [place] [address] Shaun Mcintosh MD Japaridze, Anna, MD Flores, Carlos M, MD Kokosadze, MD Cristino Shortness of breath (Primary Dx); Influenza A; Moderate asthma with exacerbation, unspecified whether persistent; Acute hypoxic respiratory failure ([facility] [place] [place] V24, [facility] [place] [place] V28) Discharge Disposition: Home or Self Care [...] AND DIFFERENTIAL STAT 12/18/2024 8:12 PM EST [id number], RSV, FLU A AND B QUALITATIVE RT-PCR, INTERNAL LAB STAT 12/18/2024 8:12 PM EST ECG 12-LEAD STAT 12/18/2024 7:35 PM EST [facility] EACH ADDITIONAL 30 MINUTES Routine 12/18/2024 7:09 PM EST [facility] CRITICAL CARE EACH ADDITIONAL 30 MINUTES Routine [...] Signed Date: 12/20/2024 12:14 ET Workstation ID: [id number] Transcribed By: Self Edit Transcribed Date: 12/20/2024 [...] Signed Date: 12/20/2024 12:14 ET Workstation ID: [id number] Transcribed By: Self Edit Transcribed Date: 12/20/2024 12:01 ET [facility] G[facility] IMG XR PROCEDURES Final Resu lt * (ABNORMAL) CBC auto differential (12/20/2024 6:13 AM EST) Only the most recent of3 resultswithin the time period is included. WBC 6.2 4.8 - 10.8 K/mcL LAB HEMETOLOGY METHOD 12/20/2024 7:22 AM [facility] RBC 4.90 4.50 - 5.50 M/mcL LAB HEMETOLOGY METHOD 12/20/2024 7:22 AM [facility] Hemoglobin 13.9 13.5 - 17.5 g/dL LAB HEMETOLOGY METHOD 12/20/2024 7:22 AM [facility] Hematocrit 42.5 42.0 - 54.0 % LAB HEMETOLOGY METHOD 12/20/2024 7:22 AM [facility] MCV 86.7 79.0 - 98.0 FL LAB HEMETOLOGY METHOD 12/20/2024 7:22 AM [facility] MCH 28.4 27.0 - 32.0 pcg LAB HEMETOLOGY METHOD 12/20/2024 7:22 AM [facility] MCHC 32.7 32.0 - 37.0 g/dL LAB HEMETOLOGY METHOD 12/20/2024 7:22 AM [facility] RDW 12.5 11.0 - 15.0 % LAB HEMETOLOGY METHOD 12/20/2024 7:22 AM [facility] Platelets 193 130 - 400 K/mcL LAB HEMETOLOGY METHOD 12/20/2024 7:22 AM [facility] MPV 10.7 7.0 - 11.0 FL LAB HEMETOLOGY METHOD 12/20/2024 7:22 AM [facility] NRBC 0.0 <1.0 % LAB HEMETOLOGY METHOD 12/20/2024 7:22 AM [facility] NRBC Absolute 0.00 <0.10 K/mcL LAB HEMETOLOGY METHOD 12/20/2024 7:22 AM [facility] Neutrophils Relative 76.1 % LAB HEMETOLOGY METHOD 12/20/2024 7:22 AM [facility] Lymphocytes Relative 13.8 % LAB HEMETOLOGY METHOD 12/20/2024 7:22 AM [facility] Monocytes Relative 9.8 % LAB HEMETOLOGY METHOD 12/20/2024 7:22 AM [facility] Eosinophils Relative 0.0 % LAB HEMETOLOGY METHOD 12/20/2024 7:22 AM [facility] Basophils Relative 0.0 % LAB HEMETOLOGY METHOD 12/20/2024 7:22 AM [facility] Immature Granulocytes Relative 0.3 % LAB HEMETOLOGY METHOD 12/20/2024 7:22 AM [facility] Neutrophils Absolute 4.74 1.50 - 7.00 K/mcL LAB HEMETOLOGY METHOD 12/20/2024 7:22 AM [facility] Lymphocytes Absolute 0.86(L) 1.00 - 5.00 K/mcL LAB HEMETOLOGY METHOD 12/20/2024 7:22 AM [facility] Monocytes Absolute 0.61 0.20 - 1.00 K/mcL LAB HEMETOLOGY METHOD 12/20/2024 7:22 AM EST [facility] Eosinophils Absolute 0.00 0.00 - 0.50 K/mcL LAB HEMETOLOGY METHOD 12/20/2024 7:22 AM EST [facility] Basophils Absolute 0.00 0.00 - 0.20 K/mcL LAB HEMETOLOGY METHOD 12/20/2024 7:22 AM EST [facility] Immature Granulocytes Absolute 0.02 0.00 - 0.03 K/[facility] LAB HEMETOLOGY METHOD 12/20/2024 7:22 AM EST [facility] Blood Venous blood specimen / Unknown Venipuncture / Unknown 12/20/2024 6:13 AM EST 12/20/2024 7:13 AM EST [facility] LAB BLOOD ORDERABLES Final Res ult Performing Organization Address City/[facility]/ZIP Co de Phone Number [facility] [address] [place] [address], [place] [phone] * Magnesium (12/20/2024 6:13 AM EST) Only the most recent of2 resultswithin the time period is included. [facility] Magnesium 2.2 1.9 - 2.6 mg/dL LAB CHEMISTRY METHOD 12/20/2024 7:51 AM EST [facility] Blood Venous blood specimen / Unknown Venipuncture / Unknown 12/20/2024 6:13 AM EST 12/20/2024 7:14 AM EST [facility] LAB BLOOD ORDERABLES Final Res ult [facility] [address] [place] [address], [place] [phone] * (ABNORMAL) Basic metabolic panel (12/20/2024 6:13 AM EST) Only the most recent of2 resultswithin the time period is included. [facility] Sodium 137 133 - 145 mmol/L LAB CHEMISTRY METHOD 12/20/2024 7:52 AM [facility] Potassium 4.7 3.5 - 5.5 mmol/L LAB CHEMISTRY METHOD 12/20/2024 7:52 AM [facility] Chloride 105 96 - 110 mmol/L LAB CHEMISTRY METHOD 12/20/2024 7:52 AM [facility] CO2 30 21 - 32 mmol/L LAB CHEMISTRY METHOD 12/20/2024 7:52 AM [facility] Anion Gap 2(L) 3 - 11 LAB CHEMISTRY METHOD 12/20/2024 7:52 AM [facility] Glucose 106(H) 70 - 100 mg/dL LAB CHEMISTRY METHOD 12/20/2024 7:52 AM [facility] BUN 17 5 - 25 mg/dL LAB CHEMISTRY METHOD 12/20/2024 7:52 AM [facility] Creatinine 0.89 0.70 - 1.30 mg/dL LAB CHEMISTRY METHOD 12/20/2024 7:52 AM [facility] eGFR 117 >=60 mL/min/1. 73m2 LAB CHEMISTRY METHOD 12/20/2024 7:52 AM [facility] Comment:Calculation based on the??Chronic Kidney Disease Epidemiology Collaboration (CKD-EPI) equation refit??without adjustment for race. BUN/Creatinine Ratio 19.1 LAB CHEMISTRY METHOD 12/20/2024 7:52 AM [facility] Calcium 8.6 8.5 - 10.5 mg/dL LAB CHEMISTRY METHOD 12/20/2024 7:52 AM [facility] Blood Venous blood specimen / Unknown Venipuncture / Unknown 12/20/2024 6:13 AM EST 12/20/2024 7:14 AM EST us Nel Alfaro NP LAB BLOOD ORDERABLES Final Res ult [facility] [address] [place] [address], [place] [phone] * (ABNORMAL) Arterial blood gas (12/19/2024 2:45 AM EST) [facility] pH, Arterial 7.40 7.35 - 7.45 pH 12/19/2024 3:06 AM [facility] pCO2, Arterial 41 35 - 45 mmHg 12/19/2024 3:06 AM [facility] pO2, Arterial 61(L) 80 - 100 mmHg 12/19/2024 3:06 AM [facility] HCO3, Arterial 25.1 22.0 - 26.0 mmol/L 12/19/2024 3:06 AM [facility] O2 Sat, Arterial 93.3(L) 95.0 - 98.0 % 12/19/2024 3:06 AM [facility] Base Excess, Arterial 0.5 -2.0 - 2.0 mmol/L 12/19/2024 3:06 AM [facility] Kiran Test Pass Pass, Unresponsi ve, Line 12/19/2024 3:06 AM [facility] FIO2 28.00 12/19/2024 3:06 AM [facility] Blood Arterial blood specimen / Unknown Arterial Puncture / Unknown 12/19/2024 2:45 AM EST 12/19/2024 2:48 AM EST us Margarita Kate MD LAB BLOOD ORDERABLES Fin al Result [facility] [address] [place] [address], [place] [phone] * Troponin I high sensitivity (12/19/2024 1:24 AM EST) [facility] High Sensitivity Troponin I 10 <=79 ng/L LAB CHEMISTRY METHOD 12/19/2024 1:53 AM EST [facility] Blood Venous blood specimen / Unknown Venipuncture / Unknown 12/19/2024 1:24 AM EST 12/19/2024 1:30 AM EST Narrative [facility] - 12/19/2024 1:53 AM EST High levels of biotin in samples may falsely decrease hsTroponin values. ??Use caution when interpreting hsTroponin results in patients taking biotin who exhibit renal impairment (eGFR <60) or in patients taking more than 20 mg/day of biotin. Anton[facility] NOEL LAB BLOOD ORDERABLES Final Resu lt Performing Organization Address City/[facility]/ZIP Co de Phone Number [facility] [address] [place] [address], [place] [phone] * Lactate (12/19/2024 1:24 AM EST) Lactate 1.6 0.4 - 2.0 mmol/L LAB CHEMISTRY METHOD 12/19/2024 1:53 AM EST [facility] Blood Venous blood specimen / Unknown Venipuncture / Unknown 12/19/2024 1:24 AM EST 12/19/2024 1:31 AM EST [facility] LAB BLOOD ORDERABLES Final Resu lt Performing Organization Address City/[facility]/ZIP Co de Phone Number [facility] [address] [place] [address], [place] [phone] * CT Abdomen Pelvis w Contrast (12/19/2024 [...] Ortega MD on 12/19/2024 01:31:48 [facility]ED[place] Final Result * CT Angio [...] Ortega MD on 12/19/2024 01:37:19 Antonietta NOEL [facility]ED[place] Final Result * (ABNORMAL) Venous blood gas (12/19/2024 12:18 AM EST) pH, Cole 7.38 7.32 - 7.42 pH 12/19/2024 12:29 AM EST [facility] pCO2, Cole 44 41 - 51 mmHg 12/19/2024 12:29 AM [facility] pO2, Cole 83(H) 25 - 40 mmHg 12/19/2024 12:29 AM [facility] HCO3, Venous 25.3 22.0 - 26.0 mmol/L 12/19/2024 12:29 AM [facility] O2 Sat, Cole 98.5 % 12/19/2024 12:29 AM [facility] Base Excess, Cole 0.5 -2.0 - 2.0 mmol/L 12/19/2024 12:29 AM [facility] Blood Venous blood specimen / Unknown Venipuncture / Unknown 12/19/2024 12:18 AM EST 12/19/2024 12:27 AM EST [facility] NOEL LAB BLOOD ORDERABLES Final Resu lt Performing Organization Address City/[facility]/ZIP Co de Phone Number [facility] [address] [place] [address], [place] [phone] * Green LI heparin tube (12/18/2024 11:52 PM EST) Pathologist [facility] Extra Tube Hold for add-ons. 12/19/2024 2:01 AM [facility] Comment:Auto resulted. Blood Venous blood specimen / Unknown 12/18/2024 11:52 PM EST 12/19/2024 12:28 AM EST [facility] NOEL LAB BLOOD ORDERABLES Final Resu lt [facility] [address] [place] [address], [place] [phone] * (ABNORMAL) [id number], RSV, Influenza A and B qualitative RT-PCR (12/18/2024 8:12 PM EST) Pathologist [facility] Influenza A PCR Detected(A) Not Detected LAB MICROBIOLOGY METHOD 12/18/2024 9:56 PM EST [facility] Influenza B PCR Not Detected Not Detected LAB MICROBIOLOGY METHOD 12/18/2024 9:56 PM EST [facility] RSV PCR Not Detected Not Detected LAB MICROBIOLOGY METHOD 12/18/2024 9:56 PM EST [facility] SARS COV-2 Not Detected Not Detected LAB MICROBIOLOGY METHOD 12/18/2024 9:56 PM [facility] Swab Both anterior nares / Unknown Non-blood Collection / Unknown 12/18/2024 8:12 PM EST 12/18/2024 8:55 PM EST [facility] - 12/18/2024 9:56 PM EST Disclaimer: ??Testing was performed using the [employer] GeneXpert Xpress SARS-CoV-2 _Flu_RSV PLUS PCR assay. [...] for Healthcare providers can be found at https://www.fda.gov/media/773910/download. ?? Fact sheet for Healthcare patients can be found at https://www.fda.gov/media/015964/download. [facility] NOEL LAB MICROBIOLOGY - GENERAL AGNES ARZATE Final Result [facility] [address] [place] [address], [place] [phone] * Lipase (12/18/2024 8:12 PM EST) Lipase 19 13 - 75 unit/L LAB CHEMISTRY METHOD 12/18/2024 9:35 PM [facility] Blood Venous blood specimen / Unknown Venipuncture / Unknown 12/18/2024 8:12 PM EST 12/18/2024 8:54 PM EST us Antonietta NOEL LAB BLOOD ORDERABLES Final Resu lt [facility] [address] [place] [address], [place] [phone] * (ABNORMAL) Comprehensive metabolic panel (12/18/2024 8:12 PM EST) Pathologist [facility] Sodium 136 133 - 145 mmol/L LAB CHEMISTRY METHOD 12/18/2024 9:37 PM [facility] Potassium 4.0 3.5 - 5.5 mmol/L LAB CHEMISTRY METHOD 12/18/2024 9:37 PM [facility] Chloride 103 96 - 110 mmol/L LAB CHEMISTRY METHOD 12/18/2024 9:37 PM [facility] CO2 23 21 - 32 mmol/L LAB CHEMISTRY METHOD 12/18/2024 9:37 PM [facility] Anion Gap 10 3 - 11 LAB CHEMISTRY METHOD 12/18/2024 9:37 PM [facility] Glucose 101(H) 70 - 100 mg/dL LAB CHEMISTRY METHOD 12/18/2024 9:37 PM [facility] BUN 13 5 - 25 mg/dL LAB CHEMISTRY METHOD 12/18/2024 9:37 PM [facility] Creatinine 1.02 0.70 - 1.30 mg/dL LAB CHEMISTRY METHOD 12/18/2024 9:37 PM [facility] eGFR 100 >=60 mL/min/1. 73m2 LAB CHEMISTRY METHOD 12/18/2024 9:37 PM [facility] Comment:Calculation based on the??Chronic Kidney Disease Epidemiology Collaboration (CKD-EPI) equation refit??without adjustment for race. BUN/Creatinine Ratio 12.7 LAB CHEMISTRY METHOD 12/18/2024 9:37 PM [facility] Calcium 9.1 8.5 - 10.5 mg/dL LAB CHEMISTRY METHOD 12/18/2024 9:37 PM [facility] AST (SGOT) 29 10 - 42 unit/L LAB CHEMISTRY METHOD 12/18/2024 9:37 PM [facility] ALT (SGPT) 35 10 - 60 unit/L LAB CHEMISTRY METHOD 12/18/2024 9:37 PM [facility] Alkaline Phosphatase 95 42 - 121 unit/L LAB CHEMISTRY METHOD 12/18/2024 9:37 PM [facility] Total Protein 8.0 6.0 - 8.0 g/dL LAB CHEMISTRY METHOD 12/18/2024 9:37 PM [facility] Albumin 4.1 3.2 - 5.0 g/dL LAB CHEMISTRY METHOD 12/18/2024 9:37 PM [facility] Total Bilirubin 1.8(H) 0.0 - 1.4 mg/dL LAB CHEMISTRY METHOD 12/18/2024 9:37 PM [facility] Blood Venous blood specimen / Unknown Venipuncture / Unknown 12/18/2024 8:12 PM EST 12/18/2024 8:54 PM EST us Antonietta NOEL LAB BLOOD ORDERABLES Final Resu lt [facility] [address] [place] [address], * ECG 12 lead (12/18/2024 7:35 PM EST) Ventricular Rate ECG 125 BPM GEMUSE Atrial Rate 125 BPM GEMUSE P-R Interval 178 ms GEMUSE QRS Duration 74 ms GEMUSE Q-T Interval 280 ms GEMUSE QTc 404 ms GEMUSE P Wave [place] 70 degrees GEMUSE R [place] 66 degrees GEMUSE T [place] 43 degrees GEMUSE ECG Interpretation Sinus tachycardia Otherwise normal ECG When compared with ECG of 16-DEC-2014 17:52, Vent. rate has increased BY ??52 BPM Confirmed by Cherelle OSUNA YUFENG ([id number]) on 12/19/2024 12:36:01 PM GEMUSE 12/18/2024 7:35 PM EST 12/19/2024 12:36 PM EST us Antonietta NOEL ECG ORDERABLES Final Result GEMUSE * [facility] EACH ADDITIONAL 30 MINUTES, [facility]ARE EACH ADDITIONAL 30 MINUTES (12/18/2024 [...] Final Result from Last 3 Months Insurance [facility] [address] PLAN Advance Directives * Full Code - [...] currently active code status orders. Care Teams Windows Desktop Support Relationship Specialty Start Date End Date Phani Del Valle DO [facility] [address] [place] [id number] PCP - General Internal Medicine 02/23/21
== END 2025-02-26 10:03 | disposition home or self-care (01) ==
LOC: HO.XRAY 10:02
PROVIDERS: PCP Internal Medicine; Visit Provider Internal Medicine
DX: M25.552 Pain in left hip (principal); S06.9X9S Unspecified intracranial injury with loss of consciousness of unspecified duration, sequela; I10 Essential (primary) hypertension; G47.00 Insomnia, unspecified; F41.9 Anxiety disorder, unspecified; F31.9 Bipolar disorder, unspecified; E66.9 Obesity, unspecified; Z68.37 Body mass index [BMI] 37.0-37.9, adult; Z79.899 Other long term (current) drug therapy
CPT/HCPCS: 73502; 96127

== ENCOUNTER → 2025-02-26 10:59 | Outpatient (BNV) | payer BC, SELFPAY | PROVIDERS: PCP Internal Medicine; Visit Provider Radiology Diagnostic Radiology | DX: M25.552 Pain in left hip (principal) | CPT/HCPCS: 73502 ==

== ENCOUNTER 2025-07-28 16:08 | Outpatient (AMB) | payer BC, SELFPAY ==
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
[2025-07-28 16:18] VITALS: BP 120/86; PULSE 102; O2SAT 97; BMI 35.1
--- OUTSIDE RECORDS SUMMARY | 2025-07-28 21:18 | XMS_ITS | Clinical Summary ---
Author Organization [facility] Address [address] [place] [address] Phone Care Team Providers Care Coil Rewind Machine Operator Name Role Phone Phani Del Valle DO [...] (BMI 35.0-39.9 without comorbidity) 04/2025 Severe obesity ([facility] V24, [facility] V28) 2024 Resolved Problems Problem Noted Date Diagnosed Date Resolved Date Acute hypoxemic respiratory failure ([facility] V24, [facility] V28) 12/19/2024 12/21/2024 Surgical History Surgery Date Site/Laterality Comments OTHER [...] 85 12/21/2024 12:37 PM EST Temperature 37.1 C (98.8 F) 12/21/2024 12:37 PM EST Respiratory Rate 18 12/21/2024 12:37 PM EST [...] 5 Years) and At-Risk Patients (6 to 49 Years) (1 of 2 - PCV) 2011 Depression Screening 11/13/2024 Cholesterol Screening (Lipid Panel) 12/19/2024 HIV Screening 12/19/2024 Hepatitis C Screening 12/19/2024 Social Influencers of Health Screening 12/19/2024 COVID-19 Vaccine (2023-2 5 season) 2025 Influenza Vaccine (#1) 2025 DTaP,Tdap,and Td Vaccines (3 - Td [...] on patient's age to complete this topic Insurance Advance Directives * Full Code - Default [...] currently active code status orders. Care Teams Coil Rewind Machine Operator Relationship Specialty Start Date End Date Phani Del Valle DO [facility] [place] [address] PCP - General Internal Medicine 02/23/21
--- OUTSIDE RECORDS SUMMARY | 2025-07-28 21:18 | XMS_ITS | Clinical Summary ---
Author Organization [facility] Address [address] [place] [address] Phone Care Team Providers Care Process Engineer Name Role Phone Unavailable Primary Care Provider Unavailabl e Social History Tobacco Use Types Packs/Day Years Used Date Smoking Tobacco: Never Assessed Sex and Gender Information Value Date Recorded Sex Assigned at Not on file Legal Sex Male 3:57 PM EST Gender Identity Not on file Sexual Orientation Not on file Plan of Treatment Not on file Medical Devices Not on file Additional Source Comments The information contained in this document represents components of the legal health record. It is not the complete legal health record.[facility]
== END 2025-07-28 16:55 | disposition home or self-care (01) ==
LOC: HO.HMCH 16:08
PROVIDERS: PCP Internal Medicine; Visit Provider Internal Medicine
DX: J45.40 Moderate persistent asthma, uncomplicated (principal); F31.9 Bipolar disorder, unspecified; E66.9 Obesity, unspecified; Z68.35 Body mass index [BMI] 35.0-35.9, adult; M25.552 Pain in left hip; S06.9X9S Unspecified intracranial injury with loss of consciousness of unspecified duration, sequela; I10 Essential (primary) hypertension; G47.00 Insomnia, unspecified; F41.9 Anxiety disorder, unspecified